=== PATIENT | female | born 1935 | race Two or more races ===

== ENCOUNTER → 2016-11-24 | Outpatient (CLI) | payer MEDICARE, OTHER ==
[~2016-11-24] VITALS: Ht 163.8 cm; Wt 91.6 kg
[~2016-11-24] MED LIST: ADENOSINE 77 MG in GIVE UN-DILUTED 0 ML IV ONE; ADENOSINE 90 MG/30 ML INJ IV ONE
== END | disposition home or self-care (01) ==
LOC: Rad HDHVI 08:53
PROVIDERS: ATTEND Internal Medicine Cardiovascular Disease
DX: I10 Essential (primary) hypertension (principal); I25.10 Atherosclerotic heart disease of native coronary artery without angina pectoris
CPT/HCPCS: 78452; 93005; 93306; 93880; 96374; 96375; A9500; J0153

== ENCOUNTER → 2017-11-29 | Outpatient (CLI) | payer MEDICARE, OTHER ==
[~2017-11-29] MED LIST changes: -ADENOSINE 77 MG in GIVE UN-DILUTED 0 ML IV ONE; -ADENOSINE 90 MG/30 ML INJ IV ONE; +ASCO500T11 PO; +CARV12.544 PO; +CHLO50TA PO; +CHOL20007 OR; +FERR-7 PO; +FOLI1TAB6 PO; +MULT-228 PO; +OLME40TA27 PO; +PANT40TA2 PO; +RIV15T PO
[2017-11-30 12:27] LABS: Hematocrit 30.6 % (36.0-46.0); Hemoglobin 10.3 g/dL (12.2-16.2); Mean Corpuscular Hemoglobin 30.8 pg (28.0-32.0); Mean Corpuscular Hgb Conc. 33.7 g/dL (32.0-36.0); Mean Corpuscular Volume 91.5 fL (80.0-100.0); Platelet Count (auto) 212 10^3/uL (140-450); Red Blood Cells 3.35 10^6/uL (4.0-5.20); Red Cell Distribution Width 18.4 % (11.8-14.3); White Blood Cell 4.2 10^3/uL (4.4-10.8)
[2017-11-30 12:29] LABS: BUN/Creatinine Ratio 11.4; Calcium 8.6 mg/dL (8.5-10.1); Potassium 3.7 mmol/L (3.5-5.1)
[2017-11-30 12:33] LABS: Basophils % (manual) 0 (0.0-2.0); Blast Cells 0; Eosinophils % (manual) 0 (0-7); Metamyelocytes % 0; Myelocytes % 0; Promyelocytes % 0; Reactive Lymphocytes 0
[2017-11-30 12:51] LABS: Band Neutrophils % (manual) 3; Lymphocytes % (manual) 32 (10.0-50.0); Monocytes % (manual) 6 (0-12)
== END | disposition home or self-care (01) ==
LOC: LAB 15:50
PROVIDERS: ATTEND Internal Medicine Cardiovascular Disease
DX: D64.9 Anemia, unspecified (principal); I10 Essential (primary) hypertension; Z88.5 Allergy status to narcotic agent
CPT/HCPCS: 36415; 80048; 85007; 85027

== ENCOUNTER 2017-12-04 17:23 | Inpatient (IN) | payer MEDICARE, OTHER ==
[~2017-12-04] VITALS: Ht 166.4 cm; Wt 97.5 kg
[2017-12-04 17:58] VITALS: BP 158/87
[2017-12-04] MEDS ORDERED: MORPHINE SULF INJ 2 MG/ML SYRINGE 1ML IV PRN (18:30)
[2017-12-04] MEDS ORDERED: NITROGLYCERIN 0.4 MG SL TAB SL PRN (18:30)
[2017-12-04 18:44] VITALS: BP 158/87
[2017-12-04] MEDS ORDERED: MULT-228 PO (18:44)
[2017-12-04] MEDS ORDERED: CHLO50TA PO (18:44)
[2017-12-04] MEDS ORDERED: PANT40TA2 PO (18:44)
[2017-12-04] MEDS ORDERED: ASCO500T11 PO (18:44)
[2017-12-04] MEDS ORDERED: FERR-7 PO (18:44)
[2017-12-04] MEDS ORDERED: CHOL20007 OR (18:44)
[2017-12-04] MEDS ORDERED: RIV15T PO (18:44)
[2017-12-04] MEDS ORDERED: CARV12.544 PO (18:44)
[2017-12-04] MEDS ORDERED: OLME40TA27 PO (18:44)
[2017-12-04] MEDS ORDERED: FOLI1TAB6 PO (18:44)
[2017-12-04] MEDS ORDERED: RIVAROXABAN 15 MG TAB PO SCH (18:52)
[2017-12-04 19:34] LABS: Basophils # (auto) 0.1 uL; Basophils % (auto) 0.9 % (0.0-2.0); Eosinophils # (auto) 0 uL; Eosinophils % (auto) 0.4 % (0.0-7.0); Hematocrit 30.6 % (36.0-46.0); Lymphocytes # (auto) 1.8 uL; Lymphocytes % (auto) 29.1 % (10.0-50.0); Mean Corpuscular Hemoglobin 28.8 pg (28.0-32.0); Mean Corpuscular Hgb Conc. 32.6 g/dL (32.0-36.0); Mean Corpuscular Volume 88.5 fL (80.0-100.0); Monocytes # (auto) 0.5 uL; Monocytes % (auto) 8.3 % (0.0-12.0); Neutrophils # (auto) 3.9 uL; Neutrophils % (auto) 61.3 % (37.0-80.0); Platelet Count (auto) 228 10^3/uL (140-450); Red Blood Cells 3.45 10^6/uL (4.0-5.20); Red Cell Distribution Width 18.8 % (11.8-14.3); White Blood Cell 6.4 10^3/uL (4.4-10.8)
[2017-12-04 19:59] LABS: Albumin 2.8 g/dL (3.4-5.0); BUN/Creatinine Ratio 18.2; Bilirubin, Total 0.5 mg/dL (0.2-1.0); Calcium 8.9 mg/dL (8.5-10.1); Potassium 3.4 mmol/L (3.5-5.1); Total Protein 8.7 g/dL (6.4-8.2)
[2017-12-04 22:00] VITALS: BP 147/75
[2017-12-04] MEDS: SODIUM CHLORIDE 0.9% 1,000 ML IV SCH (22:03)
[2017-12-04] MEDS: FERROUS SULFATE 325 MG TAB PO SCH (22:03)
[2017-12-04] MEDS: cefTRIAXone 1GM/10ml IVPUSH 10 ML IV SCH (22:03)
[2017-12-04] MEDS: CARVEDILOL 12.5 MG TAB PO SCH (22:04)
[2017-12-04] MEDS: ACETAMINOPHEN 325 MG TAB PO PRN (22:05)
[2017-12-05 01:33] LABS: Urine Bacteria NONE SEEN /hpf (None Seen); Urine Blood 2+ /uL (Negative); Urine Mucus FEW (None Seen); Urine Specific Gravity 1.014 (1.001-1.035); Urine WBC 930 /hpf (0 - 5); Urine WBC Clumps PRESENT /hpf (None Seen)
[2017-12-05 04:58] VITALS: BP 121/67
[2017-12-05] MEDS: SODIUM CHLORIDE 0.9% 1,000 ML IV SCH ×2 (07:50→15:25)
[2017-12-05 09:16] VITALS: BP 132/63
[2017-12-05] MEDS: FERROUS SULFATE 325 MG TAB PO SCH ×2 (09:17→18:05)
[2017-12-05] MEDS: cefTRIAXone 1GM/10ml IVPUSH 10 ML IV SCH (09:19)
[2017-12-05] MEDS: CHLORTHALIDONE 50MG PO SCH (09:19)
[2017-12-05] MEDS: CARVEDILOL 12.5 MG TAB PO SCH ×2 (09:20→21:31)
[2017-12-05] MEDS: PANTOPRAZOLE 40 MG TAB PO SCH (09:20)
[2017-12-05] MEDS: LOSARTAN POTASSIUM 50 MG TAB PO SCH (09:20)
[2017-12-05] MEDS: ACETAMINOPHEN 325 MG TAB PO PRN ×2 (11:52→21:31)
[2017-12-05 13:00] VITALS: BP 131/62
[2017-12-05 14:49] LABS: Basophils # (auto) 0.1 uL; Basophils % (auto) 0.9 % (0.0-2.0); Eosinophils # (auto) 0.1 uL; Eosinophils % (auto) 1.5 % (0.0-7.0); Hematocrit 26.6 % (36.0-46.0); Hemoglobin 8.7 g/dL (12.2-16.2); Lymphocytes # (auto) 0.7 uL; Lymphocytes % (auto) 11.9 % (10.0-50.0); Mean Corpuscular Hemoglobin 28.2 pg (28.0-32.0); Mean Corpuscular Hgb Conc. 32.6 g/dL (32.0-36.0); Mean Corpuscular Volume 86.5 fL (80.0-100.0); Monocytes # (auto) 0.4 uL; Monocytes % (auto) 6.5 % (0.0-12.0); Neutrophils # (auto) 4.7 uL; Neutrophils % (auto) 79.2 % (37.0-80.0); Platelet Count (auto) 195 10^3/uL (140-450); Red Blood Cells 3.08 10^6/uL (4.0-5.20); Red Cell Distribution Width 19.5 % (11.8-14.3); White Blood Cell 5.9 10^3/uL (4.4-10.8)
[2017-12-05 15:08] LABS: BUN/Creatinine Ratio 15.7; Potassium 3.3 mmol/L (3.5-5.1)
[2017-12-05] MEDS ORDERED: EPOETIN ALFA 10,000 UNIT/1 ML VIAL SC ONE (15:15)
[2017-12-05] MEDS ORDERED: POTASSIUM EFFERVESENT TAB 25 MEQ PO ONE (15:15)
[2017-12-05 17:23] VITALS: BP 116/69
[2017-12-05] MEDS ORDERED: guaiFENesin-DM 100/10mg/5ml SYR PO ONE (18:45)
[2017-12-05] MEDS: guaiFENesin-DM 100/10mg/5ml SYR PO PRN (19:27)
[2017-12-05] MEDS: TEMAZEPAM 15 MG CAP PO PRN (21:31)
[2017-12-05 22:00] VITALS: BP 157/76
[2017-12-06] MEDS: guaiFENesin-DM 100/10mg/5ml SYR PO PRN ×3 (04:36→16:30)
[2017-12-06 05:00] VITALS: BP 134/70
[2017-12-06 09:26] VITALS: BP 127/66
[2017-12-06] MEDS: LOSARTAN POTASSIUM 50 MG TAB PO SCH (10:00)
[2017-12-06] MEDS: CARVEDILOL 12.5 MG TAB PO SCH ×2 (10:00→21:16)
[2017-12-06] MEDS: CHLORTHALIDONE 50MG PO SCH (10:00)
[2017-12-06] MEDS: FERROUS SULFATE 325 MG TAB PO SCH ×2 (11:40→18:00)
[2017-12-06] MEDS: cefTRIAXone 1GM/10ml IVPUSH 10 ML IV SCH (11:40)
[2017-12-06] MEDS: PANTOPRAZOLE 40 MG TAB PO SCH (11:41)
[2017-12-06] MEDS: SODIUM CHLORIDE 0.9% 1,000 ML IV SCH ×2 (11:41→21:16)
[2017-12-06 12:30] VITALS: BP 129/72
[2017-12-06] MEDS ORDERED: POTASSIUM EFFERVESENT TAB 25 MEQ GT ONE (15:00)
[2017-12-06 16:13] VITALS: BP 139/74
[2017-12-06] MEDS: TEMAZEPAM 15 MG CAP PO PRN (21:15)
[2017-12-06 22:00] VITALS: BP 142/64
[2017-12-07] VITALS (17 sets, daily range): BP systolic 123–162; BP diastolic 65–80
[2017-12-07] MEDS: guaiFENesin-DM 100/10mg/5ml SYR PO PRN ×3 (04:08→16:35)
[2017-12-07 07:15] LABS: Hemoglobin 8.4 g/dL (12.2-16.2); Red Cell Distribution Width 18.8 % (11.8-14.3); White Blood Cell 4.8 10^3/uL (4.4-10.8)
[2017-12-07 07:19] LABS: Hematocrit 25.1 % (36.0-46.0); Mean Corpuscular Hgb Conc. 33.4 g/dL (32.0-36.0); Mean Corpuscular Volume 86.9 fL (80.0-100.0); Platelet Count (auto) 175 10^3/uL (140-450); Red Blood Cells 2.88 10^6/uL (4.0-5.20)
[2017-12-07 07:25] LABS: Band Neutrophils % (manual) 0; Basophils % (manual) 0 (0.0-2.0); Blast Cells 0; Metamyelocytes % 0; Myelocytes % 0; Promyelocytes % 0; Reactive Lymphocytes 0
[2017-12-07 07:37] LABS: BUN/Creatinine Ratio 21.2; Potassium 4.1 mmol/L (3.5-5.1)
[2017-12-07 07:38] LABS: Albumin 2.4 g/dL (3.4-5.0); Bilirubin, Total 0.4 mg/dL (0.2-1.0); Calcium 8.3 mg/dL (8.5-10.1); Total Protein 7.3 g/dL (6.4-8.2)
[2017-12-07 08:08] LABS: Eosinophils % (manual) 2 (0-7); Lymphocytes % (manual) 24 (10.0-50.0); Monocytes % (manual) 3 (0-12)
[2017-12-07] MEDS: cefTRIAXone 1GM/10ml IVPUSH 10 ML IV SCH (09:28)
[2017-12-07] MEDS: CHLORTHALIDONE 50MG PO SCH (09:29)
[2017-12-07] MEDS: CARVEDILOL 12.5 MG TAB PO SCH ×2 (09:32→21:23)
[2017-12-07] MEDS: FERROUS SULFATE 325 MG TAB PO SCH ×2 (09:32→18:01)
[2017-12-07] MEDS: LOSARTAN POTASSIUM 50 MG TAB PO SCH (09:34)
[2017-12-07] MEDS: PANTOPRAZOLE 40 MG TAB PO SCH (09:35)
[2017-12-07] MEDS: ACETAMINOPHEN 325 MG TAB PO PRN ×2 (11:05→23:27)
[2017-12-07] MEDS: SODIUM CHLORIDE 0.9% 1,000 ML IV SCH ×2 (13:23→21:24)
[2017-12-07] MEDS: TEMAZEPAM 15 MG CAP PO PRN (21:24)
[2017-12-08 05:00] VITALS: BP 158/84
[2017-12-08 06:23] LABS: Hematocrit 32.7 % (36.0-46.0); Hemoglobin 10.8 g/dL (12.2-16.2); Mean Corpuscular Hemoglobin 28.1 pg (28.0-32.0); Mean Corpuscular Hgb Conc. 33.1 g/dL (32.0-36.0); Mean Corpuscular Volume 84.9 fL (80.0-100.0); Platelet Count (auto) 171 10^3/uL (140-450); Red Blood Cells 3.85 10^6/uL (4.0-5.20); White Blood Cell 4.8 10^3/uL (4.4-10.8)
[2017-12-08 06:57] LABS: Red Cell Distribution Width 20.9 % (11.8-14.3)
[2017-12-08 06:58] LABS: Band Neutrophils % (manual) 0; Basophils % (manual) 0 (0.0-2.0); Blast Cells 0; Eosinophils % (manual) 0 (0-7); Metamyelocytes % 0; Myelocytes % 0; Promyelocytes % 0; Reactive Lymphocytes 0
[2017-12-08 08:09] LABS: Lymphocytes % (manual) 16 (10.0-50.0); Monocytes % (manual) 4 (0-12)
[2017-12-08] MEDS: FERROUS SULFATE 325 MG TAB PO SCH ×2 (08:10→19:28)
[2017-12-08 08:35] VITALS: BP 160/85
[2017-12-08] MEDS: cefTRIAXone 1GM/10ml IVPUSH 10 ML IV SCH (09:25)
[2017-12-08] MEDS: ASCORBIC ACID 500 MG TAB PO SCH (09:26)
[2017-12-08] MEDS: PANTOPRAZOLE 40 MG TAB PO SCH (09:26)
[2017-12-08] MEDS: CARVEDILOL 12.5 MG TAB PO SCH ×2 (09:26→21:43)
[2017-12-08] MEDS: LOSARTAN POTASSIUM 50 MG TAB PO SCH (09:26)
[2017-12-08] MEDS: CHLORTHALIDONE 50MG PO SCH (09:26)
[2017-12-08] MEDS: ACETAMINOPHEN 325 MG TAB PO PRN ×2 (09:27→15:30)
[2017-12-08] MEDS: guaiFENesin-DM 100/10mg/5ml SYR PO PRN ×3 (09:27→21:44)
[2017-12-08 13:00] VITALS: BP 156/74
[2017-12-08] MEDS: SODIUM CHLORIDE 0.9% 1,000 ML IV SCH (14:29)
[2017-12-08 17:00] VITALS: BP 158/74
[2017-12-08] MEDS: Pro-Stat SF 30ml Vanilla PO SCH (19:30)
[2017-12-08] MEDS: Ensure Enlive Strawberry 8oz Bottle PO SCH (19:32)
[2017-12-08] MEDS: LINEZOLID 600MG/300ML 300 ML IV SCH (21:42)
[2017-12-08 22:00] VITALS: BP 158/85
[2017-12-09 05:00] VITALS: BP 156/74
[2017-12-09] MEDS: SODIUM CHLORIDE 0.9% 1,000 ML IV SCH ×2 (05:16→18:30)
[2017-12-09] MEDS: guaiFENesin-DM 100/10mg/5ml SYR PO PRN ×3 (05:16→20:53)
[2017-12-09] MEDS: ACETAMINOPHEN 325 MG TAB PO PRN (05:16)
[2017-12-09] MEDS: FERROUS SULFATE 325 MG TAB PO SCH ×2 (08:17→17:42)
[2017-12-09] MEDS: Pro-Stat SF 30ml Vanilla PO SCH ×2 (08:25→17:42)
[2017-12-09] MEDS: Ensure Enlive Strawberry 8oz Bottle PO SCH ×3 (08:25→17:42)
[2017-12-09 09:00] VITALS: BP 156/72
[2017-12-09] MEDS: LINEZOLID 600MG/300ML 300 ML IV SCH ×2 (10:22→21:30)
[2017-12-09] MEDS: PANTOPRAZOLE 40 MG TAB PO SCH (10:23)
[2017-12-09] MEDS: ASCORBIC ACID 500 MG TAB PO SCH (10:23)
[2017-12-09] MEDS: CHLORTHALIDONE 50MG PO SCH (10:30)
[2017-12-09] MEDS: LOSARTAN POTASSIUM 50 MG TAB PO SCH (10:33)
[2017-12-09] MEDS: CARVEDILOL 12.5 MG TAB PO SCH ×2 (10:34→21:30)
[2017-12-09 13:00] VITALS: BP 136/75
[2017-12-09 17:00] VITALS: BP 155/79
[2017-12-09 17:39] LABS: Basophils # (auto) 0.1 uL; Basophils % (auto) 1.1 % (0.0-2.0); Eosinophils # (auto) 0.1 uL; Eosinophils % (auto) 1.8 % (0.0-7.0); Hematocrit 33.9 % (36.0-46.0); Hemoglobin 11.2 g/dL (12.2-16.2); Lymphocytes # (auto) 1.9 uL; Lymphocytes % (auto) 31.8 % (10.0-50.0); Mean Corpuscular Hemoglobin 28.2 pg (28.0-32.0); Mean Corpuscular Volume 85.6 fL (80.0-100.0); Monocytes # (auto) 0.6 uL; Monocytes % (auto) 9.1 % (0.0-12.0); Neutrophils # (auto) 3.4 uL; Neutrophils % (auto) 56.2 % (37.0-80.0); Nucleated Red Blood Cells % 0.1 %; Platelet Count (auto) 176 10^3/uL (140-450); Red Blood Cells 3.96 10^6/uL (4.0-5.20); White Blood Cell 6.1 10^3/uL (4.4-10.8)
[2017-12-09 17:53] LABS: Albumin 2.4 g/dL (3.4-5.0); BUN/Creatinine Ratio 21.6; Bilirubin, Total 0.4 mg/dL (0.2-1.0); Calcium 8.3 mg/dL (8.5-10.1); Potassium 3.9 mmol/L (3.5-5.1); Total Protein 7.7 g/dL (6.4-8.2)
[2017-12-09 22:00] VITALS: BP 157/80
[2017-12-10] MEDS: ACETAMINOPHEN 325 MG TAB PO PRN (01:55)
[2017-12-10 05:02] LABS: Urine Bacteria FEW /hpf (None Seen); Urine Blood 2+ /uL (Negative); Urine WBC 29 /hpf (0 - 5)
[2017-12-10 05:10] VITALS: BP 155/77
[2017-12-10] MEDS: SODIUM CHLORIDE 0.9% 1,000 ML IV SCH (06:06)
[2017-12-10] MEDS: Pro-Stat SF 30ml Vanilla PO SCH (07:39)
[2017-12-10] MEDS: Ensure Enlive Strawberry 8oz Bottle PO SCH ×2 (07:39→12:37)
[2017-12-10] MEDS: FERROUS SULFATE 325 MG TAB PO SCH (07:58)
[2017-12-10 08:00] VITALS: BP 157/80
[2017-12-10 09:27] LABS: Albumin 2.4 g/dL (3.4-5.0); BUN/Creatinine Ratio 17.7; Bilirubin, Total 0.5 mg/dL (0.2-1.0); Calcium 8.2 mg/dL (8.5-10.1); Potassium 3.6 mmol/L (3.5-5.1); Total Protein 7.5 g/dL (6.4-8.2)
[2017-12-10] MEDS: LINEZOLID 600MG/300ML 300 ML IV SCH (09:57)
[2017-12-10] MEDS: CHLORTHALIDONE 50MG PO SCH (09:59)
[2017-12-10] MEDS: ASCORBIC ACID 500 MG TAB PO SCH (10:02)
[2017-12-10] MEDS: PANTOPRAZOLE 40 MG TAB PO SCH (10:02)
[2017-12-10] MEDS: LOSARTAN POTASSIUM 50 MG TAB PO SCH (10:02)
[2017-12-10] MEDS: CARVEDILOL 12.5 MG TAB PO SCH (10:03)
[2017-12-10] MEDS: guaiFENesin-DM 100/10mg/5ml SYR PO PRN (10:23)
[2017-12-10 12:00] VITALS: BP 154/76
[2017-12-10 16:55] VITALS: BP 151/72
== END 2017-12-10 19:00 | disposition home or self-care (01) | DRG 871 ==
LOC: WEST WING 17:42 → TELE-WESTW 20:50
PROVIDERS: ADMIT Internal Medicine Cardiovascular Disease; ATTEND Internal Medicine Cardiovascular Disease
PROC: 30233N1 Transfusion of Nonautologous Red Blood Cells into Peripheral Vein, Percutaneous Approach (ICD-10-PCS; principal; 2017-12-07)
DX: A41.9 Sepsis, unspecified organism (principal); E43 Unspecified severe protein-calorie malnutrition; N17.0 Acute kidney failure with tubular necrosis; K92.2 Gastrointestinal hemorrhage, unspecified; N39.0 Urinary tract infection, site not specified; N17.9 Acute kidney failure, unspecified; E87.6 Hypokalemia; D64.9 Anemia, unspecified; I10 Essential (primary) hypertension; Z16.21 Resistance to vancomycin; B95.2 Enterococcus as the cause of diseases classified elsewhere; Z86.711 Personal history of pulmonary embolism
CPT/HCPCS: 36415; 36600; 71045; 80048; 80053; 81001; 82805; 85007; 85025; 85027; 86850; 86900; 86901; 86922; 87040; 87081; 87086; A6257; J0696; J0885

== ENCOUNTER → 2018-02-11 | Outpatient (CLI) | payer MEDICARE, OTHER ==
[~2018-02-11] MED LIST changes: +IOHEXOL 350 MG/ML 100ML IJ ONE; +OLME40TA19 PO; -OLME40TA27 PO
[2018-02-11 09:05] VITALS: BP 131/79
[2018-02-11 09:40] VITALS: BP 154/73
[2018-02-11 12:01] LABS: Basophils # (auto) 0 uL; Basophils % (auto) 0.8 % (0.0-2.0); Eosinophils # (auto) 0.1 uL; Eosinophils % (auto) 1.4 % (0.0-7.0); Hematocrit 30.2 % (36.0-46.0); Hemoglobin 9.8 g/dL (12.2-16.2); Lymphocytes # (auto) 1.5 uL; Lymphocytes % (auto) 36.5 % (10.0-50.0); Mean Corpuscular Hemoglobin 30.3 pg (28.0-32.0); Mean Corpuscular Hgb Conc. 32.5 g/dL (32.0-36.0); Mean Corpuscular Volume 93.2 fL (80.0-100.0); Monocytes # (auto) 0.4 uL; Monocytes % (auto) 8.8 % (0.0-12.0); Neutrophils # (auto) 2.2 uL; Neutrophils % (auto) 52.5 % (37.0-80.0); Nucleated Red Blood Cells % 0.9 %; Platelet Count (auto) 152 10^3/uL (140-450); Red Blood Cells 3.24 10^6/uL (4.0-5.20); White Blood Cell 4.2 10^3/uL (4.4-10.8)
== END | disposition home or self-care (01) ==
LOC: Rad HDHVI 08:58
PROVIDERS: ATTEND Internal Medicine Cardiovascular Disease
DX: I70.0 Atherosclerosis of aorta (principal); D64.9 Anemia, unspecified
CPT/HCPCS: 36415; 71275; 82565; 85025; G0463; Q9967

== ENCOUNTER → 2018-02-15 | Outpatient (CLI) | payer MEDICARE, OTHER ==
[~2018-02-15] MED LIST changes: -IOHEXOL 350 MG/ML 100ML IJ ONE
== END | disposition home or self-care (01) ==
LOC: Rad HDHVI 12:49
PROVIDERS: ATTEND Internal Medicine Cardiovascular Disease
DX: I26.99 Other pulmonary embolism without acute cor pulmonale (principal); I51.7 Cardiomegaly; I82.409 Acute embolism and thrombosis of unspecified deep veins of unspecified lower extremity; I95.9 Hypotension, unspecified
CPT/HCPCS: 93306; 93970

== ENCOUNTER → 2019-03-23 | Outpatient (CLI) | payer MEDICARE, OTHER ==
[~2019-03-23] VITALS: Ht 165.1 cm; Wt 99.8 kg
[~2019-03-23] MED LIST changes: +ADENOSINE 84 MG in GIVE UN-DILUTED 0 ML IV ONE; +ADENOSINE 90 MG/30 ML INJ IV ONE; -OLME40TA19 PO; +OLME40TA26 PO
== END | disposition home or self-care (01) ==
LOC: Rad HDHVI 11:58
PROVIDERS: ATTEND Internal Medicine Cardiovascular Disease
DX: I11.0 Hypertensive heart disease with heart failure (principal); I50.33 Acute on chronic diastolic (congestive) heart failure; I27.20 Pulmonary hypertension, unspecified
CPT/HCPCS: 78452; 93005; 93306; 96374; 96375; A9500; J0153

== ENCOUNTER → 2020-02-16 | Outpatient (CLI) | payer MEDICARE, OTHER ==
[~2020-02-16] MED LIST changes: -ADENOSINE 84 MG in GIVE UN-DILUTED 0 ML IV ONE; -ADENOSINE 90 MG/30 ML INJ IV ONE
[2020-02-16 12:05] LABS: Basophils # (auto) 0 10 ^3/uL (0-0.2); Basophils % (auto) 0.5 % (0.0-2.0); Eosinophils # (auto) 0.2 10 ^3/uL (0-0.8); Hemoglobin 8.1 g/dL (12.2-16.2); Lymphocytes # (auto) 2.1 10 ^3/uL (0.4-5.4); Mean Corpuscular Hemoglobin 30.1 pg (28.0-32.0); Mean Corpuscular Hgb Conc. 32.9 g/dL (32.0-36.0); Red Blood Cells 2.68 10^6/uL (4.0-5.20)
[2020-02-16 12:07] LABS: Hematocrit 24.5 % (36.0-46.0); Lymphocytes % (auto) 35.3 % (10.0-50.0); Mean Corpuscular Volume 91.4 fL (80.0-100.0); Monocytes # (auto) 0.7 10 ^3/uL (0-1.3); Monocytes % (auto) 11.7 % (0.0-12.0); Neutrophils # (auto) 2.9 10 ^3/uL (1.6-8.6); Neutrophils % (auto) 49.5 % (37.0-80.0); Nucleated Red Blood Cells % 0.2 %; Platelet Count (auto) 133 10^3/uL (140-450); Red Cell Distribution Width 18.9 % (11.8-14.3); White Blood Cell 5.8 10^3/uL (4.4-10.8)
[2020-02-16 12:13] LABS: Albumin 2.2 g/dL (3.4-5.0); Potassium 4.4 mmol/L (3.5-5.1)
[2020-02-16 12:51] LABS: BUN/Creatinine Ratio 17.4; Bilirubin, Direct 0.1 mg/dL (0-0.2); Bilirubin, Total 0.3 mg/dL (0.2-1.0); Calcium 9.2 mg/dL (8.5-10.1); Total Protein 8.4 g/dL (6.4-8.2)
== END | disposition home or self-care (01) ==
LOC: LAB 10:36
PROVIDERS: ATTEND Internal Medicine Cardiovascular Disease
DX: D51.3 Other dietary vitamin B12 deficiency anemia (principal); D64.9 Anemia, unspecified; E11.9 Type 2 diabetes mellitus without complications; E55.9 Vitamin D deficiency, unspecified; I10 Essential (primary) hypertension; R53.1 Weakness; R00.2 Palpitations; R30.0 Dysuria
CPT/HCPCS: 80048; 80061; 80076; 82306; 84443

== ENCOUNTER 2020-05-07 20:39 | Inpatient (IN) | payer MEDICARE, OTHER ==
[~2020-05-07] VITALS: Ht 165.1 cm; Wt 133.0 kg
[2020-05-07] MEDS ORDERED: PIPERACILLIN-TAZOB 3.375GM 100 ML IV ONE (22:15)
[2020-05-07] MEDS ORDERED: VANCOMYCIN 1GM/250ML 250 ML IV ONE (22:15)
[2020-05-07 22:55] LABS: Basophils # (auto) 0 10 ^3/uL (0-0.2); Basophils % (auto) 0.1 % (0.0-2.0); Eosinophils # (auto) 0 10 ^3/uL (0-0.8); Eosinophils % (auto) 1.1 % (0.0-7.0); Hemoglobin 8.6 g/dL (12.2-16.2); Lymphocytes # (auto) 0.4 10 ^3/uL (0.4-5.4); Lymphocytes % (auto) 8.7 % (10.0-50.0); Mean Corpuscular Hemoglobin 28.7 pg (28.0-32.0); Mean Corpuscular Hgb Conc. 32.9 g/dL (32.0-36.0); Mean Corpuscular Volume 87.2 fL (80.0-100.0); Monocytes # (auto) 0.1 10 ^3/uL (0-1.3); Monocytes % (auto) 1.8 % (0.0-12.0); Neutrophils # (auto) 3.8 10 ^3/uL (1.6-8.6); Neutrophils % (auto) 88.3 % (37.0-80.0); Nucleated Red Blood Cells % 0.8 %; Platelet Count (auto) 88 10^3/uL (140-450); Red Blood Cells 2.98 10^6/uL (4.0-5.20); Red Cell Distribution Width 19.9 % (11.8-14.3); White Blood Cell 4.3 10^3/uL (4.4-10.8)
[2020-05-07 23:08] LABS: INR 1.29 (0.9-1.15)
[2020-05-07 23:11] LABS: Alanine Aminotransferase 64 U/L (13-56); Albumin 1.3 g/dL (3.4-5.0); Anion Gap 13 (5-15); Aspartate Aminotransferase 116 U/L (15-37); BUN/Creatinine Ratio 42.4; Calcium 11.1 mg/dL (8.5-10.1); Carbon Dioxide 16 mmol/L (21-32); Chloride 116 mmol/L (98-107); GFR African American 24 mL/min; GFR Non-African American 20 mL/min; Glucose 199 mg/dL (74-106); Magnesium 1.8 mg/dL (1.6-2.6); Potassium 3.6 mmol/L (3.5-5.1); Sodium 145 mmol/L (136-145)
[2020-05-07 23:15] LABS: Blood Urea Nitrogen 103 mg/dL (7-18)
[2020-05-07 23:19] LABS: Bilirubin, Total 0.4 mg/dL (0.2-1.0); Total Protein 6.2 g/dL (6.4-8.2)
[2020-05-07 23:54] LABS: Alkaline Phosphatase 214 U/L (45-117)
[2020-05-08] MEDS ORDERED: ALBUTEROL SULF 2.5 MG/0.5ML(0.5%) NEB SOLN NEB PRN (00:30)
[2020-05-08] MEDS ORDERED: NITROGLYCERIN 0.4 MG SL TAB SL PRN (01:45)
[2020-05-08 03:28] LABS: Urine Amorphous Crystal FEW /hpf (None Seen); Urine Bacteria MANY /hpf (None Seen); Urine Blood TRACE /uL (Negative); Urine Budding Yeast MANY /hpf (None Seen); Urine Mucus FEW (None Seen); Urine Specific Gravity 1.014 (1.001-1.035); Urine WBC 168 /hpf (0 - 5); Urine WBC Clumps PRESENT /hpf (None Seen)
[2020-05-08] MEDS: metroNIDAZOLE 500MG/100ML 100 ML IV SCH ×3 (05:48→22:13)
[2020-05-08] MEDS: ALBUTEROL SULF 2.5 MG/0.5ML(0.5%) NEB SOLN NEB SCH ×3 (06:00→22:12)
[2020-05-08] MEDS: PIPERACILLIN-TAZO 4.5GM 100 ML IV SCH ×3 (08:00→23:50)
[2020-05-08] MEDS ORDERED: ENOXAPARIN SOD 60 MG/0.6 ML SYRINGE SC SCH (10:00)
[2020-05-08 11:30] VITALS: BP 127/72
[2020-05-08] MEDS: SODIUM CHLORIDE 0.9% 1,000 ML IV SCH ×2 (15:23→23:00)
[2020-05-08] MEDS: Jevity 1.2 Cal/Fiber 1 Liter NG SCH (16:08)
[2020-05-08] MEDS ORDERED: MEGE20TA4 PO (19:08)
[2020-05-08] MEDS ORDERED: FERR220E10 PO (19:08)
[2020-05-08] MEDS ORDERED: FLUC150T38 PO (19:08)
[2020-05-08] MEDS ORDERED: CARV6.2551 PO (19:08)
[2020-05-08] MEDS ORDERED: POTA-180 PO (19:08)
[2020-05-08] MEDS ORDERED: PANT40T PO (19:08)
[2020-05-08] MEDS ORDERED: SUCR1TAB22 PO (19:08)
[2020-05-08] MEDS ORDERED: LEVO-28 PO (19:08)
[2020-05-08] MEDS ORDERED: AMLO-483 PO (19:08)
[2020-05-08] MEDS ORDERED: CYAN100T7 PO (19:08)
[2020-05-08] MEDS ORDERED: ROTI4DIS TD (19:08)
[2020-05-08] MEDS ORDERED: CLIN-203 PO (19:08)
[2020-05-08] MEDS ORDERED: LEVO75TA6 PO (19:08)
[2020-05-08 21:24] VITALS: BP 115/74
[2020-05-08] MEDS ORDERED: PNEUMOCOCCAL VACC POLYS 25 MCG/0.5 ML VIAL IM ONE (21:45)
[2020-05-08] MEDS ORDERED: INFLUENZA QUAD 2020-2021 0.5 ML SYRG IM ONE (21:45)
[2020-05-09 05:00] VITALS: BP 113/59
[2020-05-09] MEDS: metroNIDAZOLE 500MG/100ML 100 ML IV SCH ×3 (05:31→20:50)
[2020-05-09] MEDS: PIPERACILLIN-TAZO 4.5GM 100 ML IV SCH ×2 (05:31→15:18)
[2020-05-09] MEDS: ALBUTEROL SULF 2.5 MG/0.5ML(0.5%) NEB SOLN NEB SCH ×3 (05:54→22:14)
[2020-05-09] MEDS: SODIUM CHLORIDE 0.9% 1,000 ML IV SCH ×3 (06:10→20:52)
[2020-05-09 08:00] VITALS: BP 119/66
[2020-05-09 13:24] LABS: Basophils # (auto) 0 10 ^3/uL (0-0.2); Basophils % (auto) 0.2 % (0.0-2.0); Eosinophils # (auto) 0.1 10 ^3/uL (0-0.8); Hemoglobin 7.7 g/dL (12.2-16.2); Lymphocytes # (auto) 0.6 10 ^3/uL (0.4-5.4); Monocytes # (auto) 0.1 10 ^3/uL (0-1.3); Monocytes % (auto) 1.7 % (0.0-12.0); Red Blood Cells 2.66 10^6/uL (4.0-5.20); Red Cell Distribution Width 19.8 % (11.8-14.3)
[2020-05-09 13:26] LABS: Eosinophils % (auto) 1.3 % (0.0-7.0); Hematocrit 22.9 % (36.0-46.0); Lymphocytes % (auto) 11.1 % (10.0-50.0); Mean Corpuscular Hemoglobin 28.9 pg (28.0-32.0); Mean Corpuscular Hgb Conc. 33.6 g/dL (32.0-36.0); Neutrophils # (auto) 4.6 10 ^3/uL (1.6-8.6); Neutrophils % (auto) 85.7 % (37.0-80.0); Nucleated Red Blood Cells % 0.4 %; Platelet Count (auto) 84 10^3/uL (140-450); White Blood Cell 5.4 10^3/uL (4.4-10.8)
[2020-05-09 14:15] LABS: BUN/Creatinine Ratio 42.3; Calcium 10.7 mg/dL (8.5-10.1); Potassium 3.3 mmol/L (3.5-5.1)
[2020-05-09 16:00] VITALS: BP 126/61
[2020-05-09] MEDS ORDERED: MICAFUNGIN SODIUM 100 MG in SODIUM CHL 0.9% 100 ML IV ONE (16:30)
[2020-05-09] MEDS: ASCORBIC ACID 500 MG TAB PO SCH (20:50)
[2020-05-09 21:52] VITALS: BP 131/68
[2020-05-10 03:12] LABS: Basophils # (auto) 0 10 ^3/uL (0-0.2); Basophils % (auto) 0.1 % (0.0-2.0); Eosinophils # (auto) 0.1 10 ^3/uL (0-0.8); Eosinophils % (auto) 1.2 % (0.0-7.0); Hematocrit 22.2 % (36.0-46.0); Hemoglobin 7.5 g/dL (12.2-16.2); Lymphocytes # (auto) 0.6 10 ^3/uL (0.4-5.4); Lymphocytes % (auto) 12.2 % (10.0-50.0); Mean Corpuscular Hgb Conc. 33.9 g/dL (32.0-36.0); Mean Corpuscular Volume 85.5 fL (80.0-100.0); Monocytes # (auto) 0.1 10 ^3/uL (0-1.3); Monocytes % (auto) 1.4 % (0.0-12.0); Neutrophils # (auto) 4.5 10 ^3/uL (1.6-8.6); Neutrophils % (auto) 85.1 % (37.0-80.0); Nucleated Red Blood Cells % 0.5 %; Platelet Count (auto) 77 10^3/uL (140-450); Red Cell Distribution Width 19.9 % (11.8-14.3); White Blood Cell 5.3 10^3/uL (4.4-10.8)
[2020-05-10 05:03] VITALS: BP 118/54
[2020-05-10] MEDS: metroNIDAZOLE 500MG/100ML 100 ML IV SCH ×3 (05:24→21:31)
[2020-05-10] MEDS: PIPERACILLIN-TAZOB 2.25GM 50 ML IV SCH ×5 (05:24→21:31)
[2020-05-10] MEDS: SODIUM CHLORIDE 0.9% 1,000 ML IV SCH ×3 (05:25→21:32)
[2020-05-10 08:00] VITALS: BP 113/60
[2020-05-10] MEDS ORDERED: MICAFUNGIN SODIUM 100 MG in SODIUM CHL 0.9% 100 ML IV SCH (10:00)
[2020-05-10] MEDS: ENOXAPARIN SOD 60 MG/0.6 ML SYRINGE SC SCH (10:17)
[2020-05-10] MEDS: ZINC SULFATE 220mg CAP or TAB PO SCH (10:43)
[2020-05-10] MEDS: CHOLECALCIFEROL (VITD3) 2,000 UNIT CAP/TAB PO SCH (10:44)
[2020-05-10] MEDS: ASCORBIC ACID 500 MG TAB PO SCH ×2 (10:44→21:31)
[2020-05-10 16:00] VITALS: BP 91/48
[2020-05-10] MEDS: ALBUTEROL SULF 2.5 MG/0.5ML(0.5%) NEB SOLN NEB SCH (18:36)
[2020-05-10 20:00] VITALS: BP 103/51
[2020-05-10 22:00] VITALS: BP 149/101
[2020-05-10] MEDS: Jevity 1.2 Cal/Fiber 1 Liter NG SCH (22:21)
[2020-05-11] MEDS: SODIUM CHLORIDE 0.9% 1,000 ML IV SCH ×4 (05:56→23:10)
[2020-05-11] MEDS: PIPERACILLIN-TAZOB 2.25GM 50 ML IV SCH ×3 (05:56→17:33)
[2020-05-11] MEDS: metroNIDAZOLE 500MG/100ML 100 ML IV SCH ×3 (05:56→22:59)
[2020-05-11] MEDS: ALBUTEROL SULF 2.5 MG/0.5ML(0.5%) NEB SOLN NEB SCH ×3 (06:00→18:08)
[2020-05-11 06:01] VITALS: BP 86/49
[2020-05-11 08:00] VITALS: BP 93/50
[2020-05-11] MEDS: ASCORBIC ACID 500 MG TAB PO SCH ×2 (09:23→23:00)
[2020-05-11] MEDS: ZINC SULFATE 220mg CAP or TAB PO SCH (09:23)
[2020-05-11] MEDS: MICAFUNGIN SODIUM 100 MG in SODIUM CHL 0.9% 100 ML IV SCH (09:24)
[2020-05-11] MEDS: ENOXAPARIN SOD 60 MG/0.6 ML SYRINGE SC SCH (09:25)
[2020-05-11] MEDS: CHOLECALCIFEROL (VITD3) 2,000 UNIT CAP/TAB PO SCH (09:25)
[2020-05-11 16:00] VITALS: BP 91/50
[2020-05-11 20:00] VITALS: BP 74/43
[2020-05-11 22:00] VITALS: BP 74/43
[2020-05-11] MEDS ORDERED: ALBUMIN 25% 100 ML IV ONE ×2 (22:29→22:30)
[2020-05-11 23:20] VITALS: BP 113/42
[2020-05-12] MEDS ORDERED: SODIUM BICARBONATE 8.4 % INJ 50ML VIAL IV ONE ×2 (00:15→00:18)
[2020-05-12 02:41] VITALS: BP 91/49
[2020-05-12 05:00] VITALS: BP 82/41
[2020-05-12] MEDS: SODIUM CHLORIDE 0.9% 1,000 ML IV SCH ×3 (05:41→16:44)
[2020-05-12] MEDS: ALBUTEROL SULF 2.5 MG/0.5ML(0.5%) NEB SOLN NEB SCH ×3 (06:20→22:00)
[2020-05-12] MEDS: metroNIDAZOLE 500MG/100ML 100 ML IV SCH ×3 (07:00→21:29)
[2020-05-12 08:00] VITALS: BP 88/36
[2020-05-12] MEDS: ENOXAPARIN SOD 60 MG/0.6 ML SYRINGE SC SCH (10:00)
[2020-05-12] MEDS: ASCORBIC ACID 500 MG TAB PO SCH ×2 (10:45→21:28)
[2020-05-12] MEDS: ZINC SULFATE 220mg CAP or TAB PO SCH (10:45)
[2020-05-12] MEDS: CHOLECALCIFEROL (VITD3) 2,000 UNIT CAP/TAB PO SCH (10:45)
[2020-05-12] MEDS: MICAFUNGIN SODIUM 100 MG in SODIUM CHL 0.9% 100 ML IV SCH (11:19)
[2020-05-12] MEDS: PIPERACILLIN-TAZOB 2.25GM 50 ML IV SCH ×4 (11:27→23:31)
[2020-05-12 12:21] LABS: Hemoglobin 8.5 g/dL (12.2-16.2); Mean Corpuscular Hgb Conc. 33.3 g/dL (32.0-36.0); Red Blood Cells 2.91 10^6/uL (4.0-5.20); White Blood Cell 5.1 10^3/uL (4.4-10.8)
[2020-05-12 12:23] LABS: Hematocrit 25.5 % (36.0-46.0); Mean Corpuscular Hemoglobin 29.2 pg (28.0-32.0); Mean Corpuscular Volume 87.8 fL (80.0-100.0); Platelet Count (auto) 40 10^3/uL (140-450)
[2020-05-12 12:27] LABS: Basophils % (manual) 0 (0.0-2.0); Blast Cells 0; Eosinophils % (manual) 0 (0-7); Metamyelocytes % 0; Myelocytes % 0; Promyelocytes % 0; Reactive Lymphocytes 0
[2020-05-12 12:36] LABS: BUN/Creatinine Ratio 36.6; Calcium 9.5 mg/dL (8.5-10.1); Potassium 3.3 mmol/L (3.5-5.1)
[2020-05-12] MEDS ORDERED: ALBUMIN 25% 100 ML IV ONE ×2 (13:45)
[2020-05-12 14:53] LABS: Lymphocytes % (manual) 13 (10.0-50.0); Monocytes % (manual) 2 (0-12)
[2020-05-12 14:55] LABS: Band Neutrophils % (manual) 18
[2020-05-12 16:00] VITALS: BP 80/38
[2020-05-12] MEDS ORDERED: D5W 5% 1,000 ML IV SCH (17:30)
[2020-05-12 22:00] VITALS: BP 91/49
[2020-05-12] MEDS: D5W/SOD CHL 0.45% 1,000 ML IV SCH (23:31)
[2020-05-13] VITALS (39 sets, daily range): BP systolic 63–132; BP diastolic 25–55
[2020-05-13] MEDS: PIPERACILLIN-TAZOB 2.25GM 50 ML IV SCH ×4 (05:07→23:23)
[2020-05-13] MEDS: ALBUTEROL SULF 2.5 MG/0.5ML(0.5%) NEB SOLN NEB SCH ×3 (06:00→22:30)
[2020-05-13] MEDS: D5W/SOD CHL 0.45% 1,000 ML IV SCH ×3 (06:02→18:04)
[2020-05-13] MEDS: metroNIDAZOLE 500MG/100ML 100 ML IV SCH ×3 (06:03→22:00)
[2020-05-13 06:15] LABS: Basophils # (auto) 0 10 ^3/uL (0-0.2); Basophils % (auto) 0.2 % (0.0-2.0); Eosinophils # (auto) 0 10 ^3/uL (0-0.8); Eosinophils % (auto) 0.3 % (0.0-7.0); Hematocrit 24.1 % (36.0-46.0); Lymphocytes # (auto) 0.6 10 ^3/uL (0.4-5.4); Lymphocytes % (auto) 10.9 % (10.0-50.0); Mean Corpuscular Hemoglobin 29.3 pg (28.0-32.0); Mean Corpuscular Hgb Conc. 33.1 g/dL (32.0-36.0); Mean Corpuscular Volume 88.4 fL (80.0-100.0); Monocytes # (auto) 0.1 10 ^3/uL (0-1.3); Neutrophils # (auto) 4.8 10 ^3/uL (1.6-8.6); Neutrophils % (auto) 86.6 % (37.0-80.0); Nucleated Red Blood Cells % 2.5 %; Platelet Count (auto) 31 10^3/uL (140-450); Red Blood Cells 2.72 10^6/uL (4.0-5.20); Red Cell Distribution Width 18.7 % (11.8-14.3); White Blood Cell 5.6 10^3/uL (4.4-10.8)
[2020-05-13 06:35] LABS: Anion Gap 10 (5-15); Carbon Dioxide 15 mmol/L (21-32); Chloride 122 mmol/L (98-107); Potassium 3.2 mmol/L (3.5-5.1); Sodium 147 mmol/L (136-145)
[2020-05-13 06:36] LABS: Alanine Aminotransferase 42 U/L (13-56); Albumin 1.9 g/dL (3.4-5.0); Alkaline Phosphatase 177 U/L (45-117); Aspartate Aminotransferase 78 U/L (15-37); BUN/Creatinine Ratio 33.6; Bilirubin, Total 1.1 mg/dL (0.2-1.0); Calcium 9.3 mg/dL (8.5-10.1); GFR African American 21 mL/min; GFR Non-African American 18 mL/min; Phosphorus 7.3 mg/dL (2.5-4.90); Total Protein 5.3 g/dL (6.4-8.2)
[2020-05-13 06:38] LABS: Blood Urea Nitrogen 92 mg/dL (7-18); Glucose 409 mg/dL (74-106)
[2020-05-13] MEDS ORDERED: InsuLIN REG 1unit/0.01ml Soln (100units/ml) SC ONE (07:00)
[2020-05-13] MEDS: MICAFUNGIN SODIUM 100 MG in SODIUM CHL 0.9% 100 ML IV SCH (09:59)
[2020-05-13] MEDS ORDERED: ETOMIDATE (2MG/ML) 20ML VIAL IV ONE (12:04)
[2020-05-13] MEDS ORDERED: ROCURONIUM 10MG/ML 10ML VIAL IV ONE (12:04)
[2020-05-13] MEDS ORDERED: SUCCINYLCHOLINE CHLORIDE 20 MG/ML 10ML VIAL IV ONE (12:04)
[2020-05-13] MEDS ORDERED: DOPamine 1600MCG/ML D5W 250 ML IV ONE (12:07)
[2020-05-13] MEDS ORDERED: POTASSIUM CHLORIDE 40 MEQ, LIDOCAINE 1% (LOCAL ANESTH.) 4 ML in SODIUM CHL 0.9% 250 ML IV ONE (12:30)
[2020-05-13] MEDS ORDERED: fentaNYL Drip 2500mCg/250mlNS 250 ML IV ONE (12:32)
[2020-05-13] MEDS ORDERED: MIDAZOLAM DRIP 50 mg/50mL 50 ML IV ONE (12:32)
[2020-05-13] MEDS ORDERED: POTASSIUM CHL 20MEQ/100ML 200 ML IV ONE (12:32)
[2020-05-13] MEDS: DOPamine 1600MCG/ML D5W 250 ML IV SCH (13:45)
[2020-05-13] MEDS: CHOLECALCIFEROL (VITD3) 2,000 UNIT CAP/TAB PO SCH (14:00)
[2020-05-13] MEDS: ASCORBIC ACID 500 MG TAB PO SCH ×2 (14:00→22:00)
[2020-05-13] MEDS: ZINC SULFATE 220mg CAP or TAB PO SCH (14:00)
[2020-05-13] MEDS: ENOXAPARIN SOD 60 MG/0.6 ML SYRINGE SC SCH (14:00)
[2020-05-13] MEDS ORDERED: NOREPINEPHRINE 8 MG/250ML KIT 250 ML IV ONE (14:10)
[2020-05-13] MEDS: NOREPINEPHRINE 8 MG/250ML KIT 250 ML IV SCH (14:15)
[2020-05-13 17:38] LABS: BUN/Creatinine Ratio 31.5; Calcium 9.5 mg/dL (8.5-10.1); Potassium 3.7 mmol/L (3.5-5.1)
[2020-05-13] MEDS: VASOPRESSIN 50 UNITS in D5W 5% 247.5 ML IV SCH (18:45)
[2020-05-13] MEDS: MIDAZOLAM DRIP 50 mg/50mL 50 ML IV SCH (19:45)
[2020-05-13] MEDS ORDERED: DEXTROSE (50%) 50ML SYRG IV PRN (19:45)
[2020-05-13] MEDS ORDERED: SODIUM BICARBONATE 8.4 % INJ 50ML VIAL IV ONE (22:48)
[2020-05-13] MEDS: SODIUM BICARBONATE 50ML VIAL 150 ML in D5W 5% 1,000 ML IV SCH ×2 (23:00→23:24)
[2020-05-14] VITALS (62 sets, daily range): BP systolic 94–144; BP diastolic 13–73
[2020-05-14] MEDS: ALBUTEROL SULF 2.5 MG/0.5ML(0.5%) NEB SOLN NEB SCH ×3 (00:30→14:00)
[2020-05-14] MEDS: SODIUM BICARBONATE 50ML VIAL 150 ML in D5W 5% 1,000 ML IV SCH ×2 (03:00→13:39)
[2020-05-14] MEDS: DOPamine 1600MCG/ML D5W 250 ML IV SCH ×6 (03:03→17:53)
[2020-05-14 05:19] LABS: BUN/Creatinine Ratio 30.9; Potassium 3.1 mmol/L (3.5-5.1)
[2020-05-14] MEDS: PIPERACILLIN-TAZOB 2.25GM 50 ML IV SCH ×4 (05:19→23:00)
[2020-05-14] MEDS: metroNIDAZOLE 500MG/100ML 100 ML IV SCH ×3 (06:00→22:00)
[2020-05-14] MEDS: ACCU-CHEK COMFORT CURVE STRIP VI SCH ×4 (06:08→18:48)
[2020-05-14] MEDS: InsuLIN REG 1unit/0.01ml Soln (100units/ml) SC SCH ×4 (06:18→18:48)
[2020-05-14 06:20] LABS: Hematocrit 27.1 % (36.0-46.0); Hemoglobin 8.2 g/dL (12.2-16.2); Mean Corpuscular Hemoglobin 29.5 pg (28.0-32.0); Mean Corpuscular Hgb Conc. 30.4 g/dL (32.0-36.0); Platelet Count (auto) 45 10^3/uL (140-450); Red Blood Cells 2.79 10^6/uL (4.0-5.20); Red Cell Distribution Width 20.9 % (11.8-14.3); White Blood Cell 11.7 10^3/uL (4.4-10.8)
[2020-05-14 06:22] LABS: Basophils % (manual) 0 (0.0-2.0); Blast Cells 0; Eosinophils % (manual) 0 (0-7); Metamyelocytes % 0; Myelocytes % 0; Promyelocytes % 0; Reactive Lymphocytes 0
[2020-05-14 06:59] LABS: Band Neutrophils % (manual) 10; Lymphocytes % (manual) 7 (10.0-50.0); Monocytes % (manual) 1 (0-12)
[2020-05-14] MEDS ORDERED: SODIUM BICARBONATE 8.4 % INJ 50ML VIAL IV ONE (08:00)
[2020-05-14] MEDS: POTASSIUM CHL 20MEQ/100ML 100 ML IV SCH ×2 (08:58→10:15)
[2020-05-14] MEDS: ENOXAPARIN SOD 60 MG/0.6 ML SYRINGE SC SCH (10:00)
[2020-05-14] MEDS: ZINC SULFATE 220mg CAP or TAB PO SCH (10:00)
[2020-05-14] MEDS: ASCORBIC ACID 500 MG TAB PO SCH ×2 (10:00→22:00)
[2020-05-14] MEDS: CHOLECALCIFEROL (VITD3) 2,000 UNIT CAP/TAB PO SCH (10:00)
[2020-05-14] MEDS: NOREPINEPHRINE 8 MG/250ML KIT 250 ML IV SCH ×3 (10:12→17:58)
[2020-05-14] MEDS: VASOPRESSIN 50 UNITS in D5W 5% 247.5 ML IV SCH (10:37)
[2020-05-14] MEDS: MICAFUNGIN SODIUM 100 MG in SODIUM CHL 0.9% 100 ML IV SCH (12:52)
[2020-05-14] MEDS: MIDAZOLAM DRIP 50 mg/50mL 50 ML IV SCH (19:45)
[2020-05-14] MEDS ORDERED: VASOPRESSIN 20 UNIT/ML ONE (23:04)
[2020-05-15] VITALS (75 sets, daily range): BP systolic 65–153; BP diastolic 11–36
[2020-05-15] MEDS: ACCU-CHEK COMFORT CURVE STRIP VI SCH ×5 (00:05→23:24)
[2020-05-15] MEDS: InsuLIN REG 1unit/0.01ml Soln (100units/ml) SC SCH ×5 (00:25→23:28)
[2020-05-15] MEDS: SODIUM BICARBONATE 50ML VIAL 150 ML in D5W 5% 1,000 ML IV SCH ×4 (02:00→18:23)
[2020-05-15] MEDS: PIPERACILLIN-TAZOB 2.25GM 50 ML IV SCH ×4 (04:08→23:19)
[2020-05-15] MEDS: ALBUTEROL SULF 2.5 MG/0.5ML(0.5%) NEB SOLN NEB SCH ×3 (05:51→22:21)
[2020-05-15] MEDS: metroNIDAZOLE 500MG/100ML 100 ML IV SCH ×3 (06:02→22:11)
[2020-05-15] MEDS: NOREPINEPHRINE 8 MG/250ML KIT 250 ML IV SCH ×3 (08:28→15:41)
[2020-05-15] MEDS: DOPamine 1600MCG/ML D5W 250 ML IV SCH ×4 (08:43→18:54)
[2020-05-15 08:44] LABS: Hematocrit 17.8 % (36.0-46.0); Red Blood Cells 2.04 10^6/uL (4.0-5.20); Red Cell Distribution Width 19.2 % (11.8-14.3)
[2020-05-15 08:45] LABS: Mean Corpuscular Hemoglobin 28.6 pg (28.0-32.0); Mean Corpuscular Hgb Conc. 32.7 g/dL (32.0-36.0); Mean Corpuscular Volume 87.3 fL (80.0-100.0); Platelet Count (auto) 37 10^3/uL (140-450); White Blood Cell 27.6 10^3/uL (4.4-10.8)
[2020-05-15 08:55] LABS: Hemoglobin 5.8 g/dL (12.2-16.2)
[2020-05-15 08:56] LABS: Basophils % (manual) 0 (0.0-2.0); Blast Cells 0; Eosinophils % (manual) 0 (0-7); Monocytes % (manual) 0 (0-12); Promyelocytes % 0; Reactive Lymphocytes 0
[2020-05-15 09:01] LABS: Potassium 3.7 mmol/L (3.5-5.1)
[2020-05-15 09:42] LABS: Band Neutrophils % (manual) 27; Lymphocytes % (manual) 5 (10.0-50.0); Metamyelocytes % 3; Myelocytes % 3
[2020-05-15] MEDS: ASCORBIC ACID 500 MG TAB PO SCH ×2 (10:00→22:11)
[2020-05-15] MEDS: ENOXAPARIN SOD 60 MG/0.6 ML SYRINGE SC SCH (10:00)
[2020-05-15] MEDS: CHOLECALCIFEROL (VITD3) 2,000 UNIT CAP/TAB PO SCH (10:00)
[2020-05-15] MEDS: ZINC SULFATE 220mg CAP or TAB PO SCH (10:00)
[2020-05-15] MEDS: MICAFUNGIN SODIUM 100 MG in SODIUM CHL 0.9% 100 ML IV SCH (10:28)
[2020-05-15] MEDS: VASOPRESSIN 50 UNITS in D5W 5% 247.5 ML IV SCH (10:28)
[2020-05-15] MEDS: MIDAZOLAM DRIP 50 mg/50mL 50 ML IV SCH ×2 (15:04→15:36)
[2020-05-15 18:02] LABS: BUN/Creatinine Ratio 28.6; Calcium 7.6 mg/dL (8.5-10.1); Potassium 3.7 mmol/L (3.5-5.1)
[2020-05-15 18:04] LABS: Bilirubin, Total 0.9 mg/dL (0.2-1.0)
[2020-05-15 18:08] LABS: Hematocrit 16.7 % (36.0-46.0); Mean Corpuscular Hemoglobin 28.7 pg (28.0-32.0); Mean Corpuscular Hgb Conc. 32.8 g/dL (32.0-36.0); Mean Corpuscular Volume 87.4 fL (80.0-100.0); Platelet Count (auto) 34 10^3/uL (140-450); Red Cell Distribution Width 19.7 % (11.8-14.3); White Blood Cell 29.8 10^3/uL (4.4-10.8)
[2020-05-15 18:27] LABS: Hemoglobin 5.5 g/dL (12.2-16.2)
[2020-05-15 18:28] LABS: Basophils % (manual) 0 (0.0-2.0); Blast Cells 0; Eosinophils % (manual) 0 (0-7); Promyelocytes % 0; Reactive Lymphocytes 0
[2020-05-15 19:29] LABS: Band Neutrophils % (manual) 28; Lymphocytes % (manual) 15 (10.0-50.0); Metamyelocytes % 6; Monocytes % (manual) 4 (0-12); Myelocytes % 4
[2020-05-16] VITALS (104 sets, daily range): BP systolic 66–178; BP diastolic 11–73
[2020-05-16] MEDS: PIPERACILLIN-TAZOB 2.25GM 50 ML IV SCH ×4 (04:32→22:36)
[2020-05-16] MEDS: NOREPINEPHRINE 8 MG/250ML KIT 250 ML IV SCH ×3 (04:54→16:43)
[2020-05-16] MEDS: ALBUTEROL SULF 2.5 MG/0.5ML(0.5%) NEB SOLN NEB SCH ×3 (06:00→21:52)
[2020-05-16] MEDS: InsuLIN REG 1unit/0.01ml Soln (100units/ml) SC SCH ×3 (06:00→17:54)
[2020-05-16] MEDS: SODIUM BICARBONATE 50ML VIAL 150 ML in D5W 5% 1,000 ML IV SCH ×3 (06:03→21:33)
[2020-05-16] MEDS: metroNIDAZOLE 500MG/100ML 100 ML IV SCH ×3 (06:03→21:38)
[2020-05-16] MEDS: ACCU-CHEK COMFORT CURVE STRIP VI SCH ×3 (06:04→17:24)
[2020-05-16 06:39] LABS: Mean Corpuscular Volume 84.2 fL (80.0-100.0)
[2020-05-16 06:42] LABS: Hematocrit 18.1 % (36.0-46.0); Mean Corpuscular Hemoglobin 28.3 pg (28.0-32.0); Mean Corpuscular Hgb Conc. 33.7 g/dL (32.0-36.0); Platelet Count (auto) 25 10^3/uL (140-450); Red Blood Cells 2.15 10^6/uL (4.0-5.20); Red Cell Distribution Width 18.1 % (11.8-14.3); White Blood Cell 25.9 10^3/uL (4.4-10.8)
[2020-05-16 06:43] LABS: BUN/Creatinine Ratio 26.4; Potassium 3.8 mmol/L (3.5-5.1)
[2020-05-16 07:02] LABS: Hemoglobin 6.1 g/dL (12.2-16.2)
[2020-05-16 07:04] LABS: Basophils % (manual) 0 (0.0-2.0); Blast Cells 0; Eosinophils % (manual) 0 (0-7); Monocytes % (manual) 0 (0-12); Promyelocytes % 0; Reactive Lymphocytes 0
[2020-05-16 07:29] LABS: Band Neutrophils % (manual) 14; Lymphocytes % (manual) 7 (10.0-50.0); Metamyelocytes % 3; Myelocytes % 2
[2020-05-16] MEDS ORDERED: SODIUM CHLORIDE 0.9 % NEB SOLN 3ML NEB ONE (07:47)
[2020-05-16] MEDS ORDERED: BUMETANIDE 2.5mg/10ml (0.25 mg/ml) INJ IV ONE (08:00)
[2020-05-16] MEDS: DOPamine 1600MCG/ML D5W 250 ML IV SCH (08:31)
[2020-05-16] MEDS: MICAFUNGIN SODIUM 100 MG in SODIUM CHL 0.9% 100 ML IV SCH (09:47)
[2020-05-16] MEDS: CHOLECALCIFEROL (VITD3) 2,000 UNIT CAP/TAB PO SCH (09:48)
[2020-05-16] MEDS: ZINC SULFATE 220mg CAP or TAB PO SCH (09:48)
[2020-05-16] MEDS: ASCORBIC ACID 500 MG TAB PO SCH ×2 (09:48→21:39)
[2020-05-16] MEDS: ENOXAPARIN SOD 60 MG/0.6 ML SYRINGE SC SCH (09:48)
[2020-05-16] MEDS: VASOPRESSIN 50 UNITS in D5W 5% 247.5 ML IV SCH (11:00)
[2020-05-16] MEDS ORDERED: SODIUM BICARBONATE 8.4% INJ 50ML SYRINGE IV ONE (12:53)
[2020-05-16] MEDS ORDERED: EPINEPHrine HCL 1 MG/10 ML SYRG IV ONE (12:53)
[2020-05-16 20:23] LABS: Red Cell Distribution Width 17.8 % (11.8-14.3)
[2020-05-16 20:25] LABS: Hematocrit 16.4 % (36.0-46.0); Mean Corpuscular Hemoglobin 28.8 pg (28.0-32.0); Mean Corpuscular Hgb Conc. 33.9 g/dL (32.0-36.0); Mean Corpuscular Volume 84.9 fL (80.0-100.0); Red Blood Cells 1.93 10^6/uL (4.0-5.20)
[2020-05-16 20:28] LABS: Hemoglobin 5.6 g/dL (12.2-16.2); Platelet Count (auto) 13 10^3/uL (140-450)
[2020-05-16 20:29] LABS: Basophils % (manual) 0 (0.0-2.0); Blast Cells 0; Eosinophils % (manual) 0 (0-7); Monocytes % (manual) 0 (0-12); Reactive Lymphocytes 0
[2020-05-16 20:50] LABS: Band Neutrophils % (manual) 52; Lymphocytes % (manual) 8 (10.0-50.0); Metamyelocytes % 5; Myelocytes % 12; Promyelocytes % 2
[2020-05-16] MEDS: MIDAZOLAM DRIP 50 mg/50mL 50 ML IV SCH (21:33)
[2020-05-17] VITALS (91 sets, daily range): BP systolic 51–182; BP diastolic 16–132
[2020-05-17] MEDS: ACCU-CHEK COMFORT CURVE STRIP VI SCH ×5 (00:39→23:54)
[2020-05-17] MEDS: SODIUM BICARBONATE 50ML VIAL 150 ML in D5W 5% 1,000 ML IV SCH ×3 (05:00→16:55)
[2020-05-17] MEDS: PIPERACILLIN-TAZOB 2.25GM 50 ML IV SCH ×2 (05:03→12:48)
[2020-05-17] MEDS: ALBUTEROL SULF 2.5 MG/0.5ML(0.5%) NEB SOLN NEB SCH ×3 (06:00→18:30)
[2020-05-17] MEDS: InsuLIN REG 1unit/0.01ml Soln (100units/ml) SC SCH ×5 (06:00→23:54)
[2020-05-17] MEDS: metroNIDAZOLE 500MG/100ML 100 ML IV SCH (06:29)
[2020-05-17] MEDS ORDERED: VASOPRESSIN 20 UNIT/ML ONE (07:21)
[2020-05-17] MEDS: VASOPRESSIN 50 UNITS in D5W 5% 247.5 ML IV SCH (07:30)
[2020-05-17] MEDS: MIDAZOLAM DRIP 50 mg/50mL 50 ML IV SCH (07:31)
[2020-05-17] MEDS: NOREPINEPHRINE 8 MG/250ML KIT 250 ML IV SCH (07:32)
[2020-05-17] MEDS: ENOXAPARIN SOD 60 MG/0.6 ML SYRINGE SC SCH (09:48)
[2020-05-17 09:53] LABS: Basophils # (auto) 0.1 10 ^3/uL (0-0.2); Eosinophils # (auto) 0 10 ^3/uL (0-0.8); Eosinophils % (auto) 0.1 % (0.0-7.0); Hematocrit 19.4 % (36.0-46.0); Lymphocytes # (auto) 0.8 10 ^3/uL (0.4-5.4); Mean Corpuscular Hemoglobin 29.1 pg (28.0-32.0); Mean Corpuscular Hgb Conc. 34.2 g/dL (32.0-36.0); Mean Corpuscular Volume 85.1 fL (80.0-100.0); Monocytes # (auto) 0.2 10 ^3/uL (0-1.3); Monocytes % (auto) 1.5 % (0.0-12.0); Neutrophils % (auto) 90.4 % (37.0-80.0); Nucleated Red Blood Cells % 3.5 %; Red Blood Cells 2.28 10^6/uL (4.0-5.20); Red Cell Distribution Width 17.5 % (11.8-14.3); White Blood Cell 11.1 10^3/uL (4.4-10.8)
[2020-05-17 09:57] LABS: Hemoglobin 6.6 g/dL (12.2-16.2); Platelet Count (auto) 10 10^3/uL (140-450)
[2020-05-17] MEDS: DOPamine 1600MCG/ML D5W 250 ML IV SCH (09:58)
[2020-05-17] MEDS: MICAFUNGIN SODIUM 100 MG in SODIUM CHL 0.9% 100 ML IV SCH (09:58)
[2020-05-17] MEDS: ZINC SULFATE 220mg CAP or TAB PO SCH (09:59)
[2020-05-17] MEDS: ASCORBIC ACID 500 MG TAB PO SCH ×2 (09:59→21:22)
[2020-05-17] MEDS: CHOLECALCIFEROL (VITD3) 2,000 UNIT CAP/TAB PO SCH (09:59)
[2020-05-17] MEDS: FAMOTIDINE (10MG/ML) 2ML VL IV SCH (09:59)
[2020-05-17 10:14] LABS: BUN/Creatinine Ratio 25.3; Calcium 7.1 mg/dL (8.5-10.1); Potassium 3.4 mmol/L (3.5-5.1)
[2020-05-17] MEDS ORDERED: VANCOMYCIN PER PHARMACY 0 MG IV SCH (13:45)
[2020-05-17] MEDS ORDERED: VANCOMYCIN 1GM/250ML 250 ML IV ONE (15:00)
[2020-05-17] MEDS: MEROPENEM 500MG IVPB 50 ML IV SCH (21:22)
[2020-05-18] VITALS (112 sets, daily range): BP systolic 49–170; BP diastolic 22–77
[2020-05-18] MEDS: SODIUM BICARBONATE 50ML VIAL 150 ML in D5W 5% 1,000 ML IV SCH ×4 (02:13→20:00)
[2020-05-18] MEDS: ACCU-CHEK COMFORT CURVE STRIP VI SCH ×3 (06:10→17:58)
[2020-05-18] MEDS: InsuLIN REG 1unit/0.01ml Soln (100units/ml) SC SCH ×3 (06:13→18:20)
[2020-05-18] MEDS: ALBUTEROL SULF 2.5 MG/0.5ML(0.5%) NEB SOLN NEB SCH ×3 (06:43→22:10)
[2020-05-18] MEDS: FAMOTIDINE (10MG/ML) 2ML VL IV SCH (08:53)
[2020-05-18] MEDS: ASCORBIC ACID 500 MG TAB PO SCH ×2 (08:53→22:00)
[2020-05-18] MEDS: ZINC SULFATE 220mg CAP or TAB PO SCH (08:53)
[2020-05-18] MEDS: CHOLECALCIFEROL (VITD3) 2,000 UNIT CAP/TAB PO SCH (08:53)
[2020-05-18] MEDS: ENOXAPARIN SOD 60 MG/0.6 ML SYRINGE SC SCH (08:53)
[2020-05-18] MEDS: NOREPINEPHRINE 8 MG/250ML KIT 250 ML IV SCH ×2 (08:55)
[2020-05-18] MEDS: MICAFUNGIN SODIUM 100 MG in SODIUM CHL 0.9% 100 ML IV SCH (08:55)
[2020-05-18] MEDS: MEROPENEM 500MG IVPB 50 ML IV SCH ×2 (08:55→22:00)
[2020-05-18] MEDS: MIDAZOLAM DRIP 50 mg/50mL 50 ML IV SCH (08:56)
[2020-05-18] MEDS: DOPamine 1600MCG/ML D5W 250 ML IV SCH (08:56)
[2020-05-18] MEDS: VASOPRESSIN 50 UNITS in D5W 5% 247.5 ML IV SCH (12:28)
[2020-05-18] MEDS ORDERED: DAKINS QUARTER STR 0.125% (NaHypochlorite) 473 ML TOPICAL SOL TOP ONE (17:30)
[2020-05-19] VITALS (69 sets, daily range): BP systolic 74–165; BP diastolic 26–101
[2020-05-19] MEDS: ACCU-CHEK COMFORT CURVE STRIP VI SCH ×4 (00:24→16:51)
[2020-05-19] MEDS ORDERED: SODIUM BICARBONATE 8.4 % INJ 50ML VIAL IV ONE (03:14)
[2020-05-19] MEDS: MIDAZOLAM DRIP 50 mg/50mL 50 ML IV SCH ×2 (05:45→20:00)
[2020-05-19] MEDS: ALBUTEROL SULF 2.5 MG/0.5ML(0.5%) NEB SOLN NEB SCH ×3 (06:00→22:08)
[2020-05-19] MEDS: InsuLIN REG 1unit/0.01ml Soln (100units/ml) SC SCH ×4 (06:23→16:51)
[2020-05-19] MEDS: MEROPENEM 500MG IVPB 50 ML IV SCH ×2 (08:51→21:50)
[2020-05-19] MEDS: MICAFUNGIN SODIUM 100 MG in SODIUM CHL 0.9% 100 ML IV SCH (08:51)
[2020-05-19] MEDS: NOREPINEPHRINE 8 MG/250ML KIT 250 ML IV SCH (08:53)
[2020-05-19] MEDS: FAMOTIDINE (10MG/ML) 2ML VL IV SCH (09:00)
[2020-05-19] MEDS: DOPamine 1600MCG/ML D5W 250 ML IV SCH (09:00)
[2020-05-19] MEDS: ENOXAPARIN SOD 60 MG/0.6 ML SYRINGE SC SCH (09:01)
[2020-05-19 09:49] LABS: Red Blood Cells 2.39 10^6/uL (4.0-5.20); White Blood Cell 2.8 10^3/uL (4.4-10.8)
[2020-05-19 09:50] LABS: Hemoglobin 7.1 g/dL (12.2-16.2); Mean Corpuscular Hemoglobin 29.9 pg (28.0-32.0); Mean Corpuscular Hgb Conc. 35.8 g/dL (32.0-36.0); Mean Corpuscular Volume 83.5 fL (80.0-100.0); Red Cell Distribution Width 15.1 % (11.8-14.3)
[2020-05-19 09:53] LABS: Platelet Count (auto) 11 10^3/uL (140-450)
[2020-05-19 09:55] LABS: Basophils % (manual) 0 (0.0-2.0); Blast Cells 0; Metamyelocytes % 0; Promyelocytes % 0; Reactive Lymphocytes 0
[2020-05-19] MEDS: ASCORBIC ACID 500 MG TAB PO SCH ×2 (10:00→21:50)
[2020-05-19] MEDS: ZINC SULFATE 220mg CAP or TAB PO SCH (10:00)
[2020-05-19] MEDS: CHOLECALCIFEROL (VITD3) 2,000 UNIT CAP/TAB PO SCH (10:00)
[2020-05-19 10:05] LABS: Calcium 7.1 mg/dL (8.5-10.1); Potassium 3.3 mmol/L (3.5-5.1)
[2020-05-19 10:10] LABS: BUN/Creatinine Ratio 24.3; Bilirubin, Total 2.1 mg/dL (0.2-1.0); Total Protein 3.6 g/dL (6.4-8.2)
[2020-05-19 10:14] LABS: Albumin 0.9 g/dL (3.4-5.0)
[2020-05-19 10:22] LABS: Band Neutrophils % (manual) 5; Eosinophils % (manual) 1 (0-7); Lymphocytes % (manual) 38 (10.0-50.0); Monocytes % (manual) 14 (0-12); Myelocytes % 1
[2020-05-19] MEDS ORDERED: ALBUMIN 25% 100 ML IV ONE (11:30)
[2020-05-19] MEDS: CALCIUM ACETATE 667 MG CAP NG SCH ×2 (11:51→21:50)
[2020-05-19] MEDS ORDERED: POTASSIUM CHL 20MEQ/100ML 100 ML IV ONE (12:00)
[2020-05-19] MEDS: SODIUM BICARBONATE 50ML VIAL 100 ML in SOD CHL 0.45% 1,000 ML IV SCH ×3 (13:22→21:51)
[2020-05-19] MEDS: VASOPRESSIN 50 UNITS in D5W 5% 247.5 ML IV SCH (15:00)
[2020-05-20] VITALS (99 sets, daily range): BP systolic 68–152; BP diastolic 20–91
[2020-05-20] MEDS: ACCU-CHEK COMFORT CURVE STRIP VI SCH ×4 (00:11→17:47)
[2020-05-20] MEDS: NOREPINEPHRINE 8 MG/250ML KIT 250 ML IV SCH ×2 (01:00→12:46)
[2020-05-20] MEDS: SODIUM BICARBONATE 50ML VIAL 100 ML in SOD CHL 0.45% 1,000 ML IV SCH (05:30)
[2020-05-20] MEDS: InsuLIN REG 1unit/0.01ml Soln (100units/ml) SC SCH ×4 (05:45→18:00)
[2020-05-20] MEDS: CALCIUM ACETATE 667 MG CAP NG SCH ×3 (06:00→22:29)
[2020-05-20] MEDS: ALBUTEROL SULF 2.5 MG/0.5ML(0.5%) NEB SOLN NEB SCH ×3 (06:26→19:00)
[2020-05-20 09:09] LABS: Hematocrit 13.1 % (36.0-46.0); Red Cell Distribution Width 15.3 % (11.8-14.3); White Blood Cell 2.5 10^3/uL (4.4-10.8)
[2020-05-20 09:11] LABS: Mean Corpuscular Hemoglobin 29.9 pg (28.0-32.0); Mean Corpuscular Hgb Conc. 35.9 g/dL (32.0-36.0); Mean Corpuscular Volume 83.3 fL (80.0-100.0); Red Blood Cells 1.57 10^6/uL (4.0-5.20)
[2020-05-20 09:15] LABS: Hemoglobin 4.7 g/dL (12.2-16.2); Platelet Count (auto) 12 10^3/uL (140-450)
[2020-05-20 09:32] LABS: Albumin 1.1 g/dL (3.4-5.0); Potassium 3.5 mmol/L (3.5-5.1)
[2020-05-20 09:33] LABS: Basophils % (manual) 0 (0.0-2.0); Blast Cells 0; Reactive Lymphocytes 0
[2020-05-20 09:35] LABS: BUN/Creatinine Ratio 23.8; Bilirubin, Total 2.2 mg/dL (0.2-1.0); Total Protein 3.3 g/dL (6.4-8.2)
[2020-05-20 09:36] LABS: Band Neutrophils % (manual) 6; Eosinophils % (manual) 4 (0-7); Lymphocytes % (manual) 44 (10.0-50.0); Metamyelocytes % 1; Monocytes % (manual) 14 (0-12); Myelocytes % 1; Promyelocytes % 1
[2020-05-20] MEDS: ZINC SULFATE 220mg CAP or TAB PO SCH (10:25)
[2020-05-20] MEDS: DOPamine 1600MCG/ML D5W 250 ML IV SCH (10:25)
[2020-05-20] MEDS: FAMOTIDINE (10MG/ML) 2ML VL IV SCH (10:25)
[2020-05-20] MEDS: CHOLECALCIFEROL (VITD3) 2,000 UNIT CAP/TAB PO SCH (10:26)
[2020-05-20] MEDS: ASCORBIC ACID 500 MG TAB PO SCH ×2 (10:26→22:29)
[2020-05-20] MEDS: SODIUM CHLORIDE 0.9% 1,000 ML IV SCH ×2 (12:45→17:47)
[2020-05-20] MEDS: MEROPENEM 500MG IVPB 50 ML IV SCH ×2 (12:46→22:28)
[2020-05-20] MEDS: PANTOPRAZOLE 40 MG/10 ML VIAL INJ IV SCH ×2 (12:46→22:29)
[2020-05-20] MEDS: VASOPRESSIN 50 UNITS in D5W 5% 247.5 ML IV SCH (14:54)
[2020-05-20] MEDS ORDERED: TPN PER PHARMACY 0 ML IV SCH (15:00)
[2020-05-20] MEDS ORDERED: DEXTROSE (50%) 50ML SYRG IV SCH (18:00)
[2020-05-20] MEDS ORDERED: AMINO ACID INFUSION IN D10W 1,000 ML IV NR (20:00)
[2020-05-21] VITALS (98 sets, daily range): BP systolic 80–170; BP diastolic 33–80
[2020-05-21] MEDS: ACCU-CHEK COMFORT CURVE STRIP VI SCH ×4 (00:25→18:00)
[2020-05-21] MEDS: SODIUM CHLORIDE 0.9% 1,000 ML IV SCH ×3 (00:26→18:00)
[2020-05-21 04:45] LABS: Potassium 3.5 mmol/L (3.5-5.1)
[2020-05-21 04:57] LABS: Albumin 1.1 g/dL (3.4-5.0); BUN/Creatinine Ratio 22.6; Bilirubin, Total 2.5 mg/dL (0.2-1.0); Calcium 6.9 mg/dL (8.5-10.1); Magnesium 1.4 mg/dL (1.6-2.6); Phosphorus 6.7 mg/dL (2.5-4.90); Pre Albumin 6.3 mg/dL (20.0-40.0); Total Protein 3.5 g/dL (6.4-8.2)
[2020-05-21] MEDS: ALBUTEROL SULF 2.5 MG/0.5ML(0.5%) NEB SOLN NEB SCH ×3 (05:47→22:26)
[2020-05-21] MEDS: CALCIUM ACETATE 667 MG CAP NG SCH ×3 (05:58→22:04)
[2020-05-21] MEDS: InsuLIN REG 1unit/0.01ml Soln (100units/ml) SC SCH ×4 (06:01→18:00)
[2020-05-21 06:10] LABS: Red Cell Distribution Width 14.9 % (11.8-14.3); White Blood Cell 2.8 10^3/uL (4.4-10.8)
[2020-05-21 06:16] LABS: Hematocrit 14.5 % (36.0-46.0); Mean Corpuscular Hemoglobin 30.8 pg (28.0-32.0); Mean Corpuscular Hgb Conc. 37.1 g/dL (32.0-36.0); Mean Corpuscular Volume 83.1 fL (80.0-100.0); Red Blood Cells 1.75 10^6/uL (4.0-5.20)
[2020-05-21 06:21] LABS: Hemoglobin 5.4 g/dL (12.2-16.2); Platelet Count (auto) 17 10^3/uL (140-450)
[2020-05-21 06:23] LABS: Basophils % (manual) 0 (0.0-2.0); Promyelocytes % 0; Reactive Lymphocytes 0
[2020-05-21 06:49] LABS: Band Neutrophils % (manual) 43; Blast Cells 1; Eosinophils % (manual) 3 (0-7); Lymphocytes % (manual) 30 (10.0-50.0); Metamyelocytes % 5; Monocytes % (manual) 2 (0-12); Myelocytes % 3
[2020-05-21] MEDS: MEROPENEM 500MG IVPB 50 ML IV SCH ×2 (09:01→22:03)
[2020-05-21] MEDS: ASCORBIC ACID 500 MG TAB PO SCH ×2 (09:01→22:04)
[2020-05-21] MEDS: ZINC SULFATE 220mg CAP or TAB PO SCH (09:01)
[2020-05-21] MEDS: PANTOPRAZOLE 40 MG/10 ML VIAL INJ IV SCH ×2 (09:02→22:03)
[2020-05-21] MEDS: CHOLECALCIFEROL (VITD3) 2,000 UNIT CAP/TAB PO SCH (09:02)
[2020-05-21] MEDS ORDERED: MAGNESIUM SULFATE 1GM/100ML 100 ML IV ONE (10:00)
[2020-05-21] MEDS: MIDAZOLAM DRIP 50 mg/50mL 50 ML IV SCH ×2 (13:22→20:45)
[2020-05-21 13:38] LABS: Protein, Urine 28.4 mg/dL (0.0-11.9)
[2020-05-21] MEDS: VASOPRESSIN 50 UNITS in D5W 5% 247.5 ML IV SCH (15:00)
[2020-05-21] MEDS ORDERED: CALCIUM GLUC 4.65meq/50ml D5AE 50 ML IV ONE (16:00)
[2020-05-21] MEDS: DOPamine 1600MCG/ML D5W 250 ML IV SCH (18:33)
[2020-05-21] MEDS: NOREPINEPHRINE 8 MG/250ML KIT 250 ML IV SCH (19:05)
[2020-05-21] MEDS ORDERED: TPN PER PHARMACY IV NR ×6 (20:00)
[2020-05-22] VITALS (68 sets, daily range): BP systolic 86–161; BP diastolic 31–71
[2020-05-22] MEDS: InsuLIN REG 1unit/0.01ml Soln (100units/ml) SC SCH ×4 (00:12→18:28)
[2020-05-22] MEDS: ACCU-CHEK COMFORT CURVE STRIP VI SCH ×4 (00:12→18:28)
[2020-05-22] MEDS: SODIUM CHLORIDE 0.9% 1,000 ML IV SCH ×3 (01:00→21:00)
[2020-05-22 05:17] LABS: Potassium 4.2 mmol/L (3.5-5.1)
[2020-05-22 05:26] LABS: BUN/Creatinine Ratio 23.4; Bilirubin, Total 1.4 mg/dL (0.2-1.0); Calcium 6.2 mg/dL (8.5-10.1); Magnesium 1.6 mg/dL (1.6-2.6); Phosphorus 6.8 mg/dL (2.5-4.90); Total Protein 2.1 g/dL (6.4-8.2)
[2020-05-22 05:40] LABS: Albumin 0.2 g/dL (3.4-5.0)
[2020-05-22] MEDS: CALCIUM ACETATE 667 MG CAP NG SCH ×3 (06:13→22:00)
[2020-05-22] MEDS: ALBUTEROL SULF 2.5 MG/0.5ML(0.5%) NEB SOLN NEB SCH ×2 (09:08→17:57)
[2020-05-22] MEDS: MEROPENEM 500MG IVPB 50 ML IV SCH ×2 (10:29→22:00)
[2020-05-22] MEDS: ASCORBIC ACID 500 MG TAB PO SCH ×2 (10:29→22:00)
[2020-05-22] MEDS: ZINC SULFATE 220mg CAP or TAB PO SCH (10:29)
[2020-05-22] MEDS: PANTOPRAZOLE 40 MG/10 ML VIAL INJ IV SCH ×2 (10:29→22:00)
[2020-05-22] MEDS: CHOLECALCIFEROL (VITD3) 2,000 UNIT CAP/TAB PO SCH (10:29)
[2020-05-22 11:25] LABS: Mean Corpuscular Volume 83.6 fL (80.0-100.0); White Blood Cell 2.5 10^3/uL (4.4-10.8)
[2020-05-22 11:27] LABS: Hematocrit 14.8 % (36.0-46.0); Mean Corpuscular Hgb Conc. 35.8 g/dL (32.0-36.0); Platelet Count (auto) 34 10^3/uL (140-450); Red Blood Cells 1.77 10^6/uL (4.0-5.20); Red Cell Distribution Width 15.8 % (11.8-14.3)
[2020-05-22 11:49] LABS: Hemoglobin 5.3 g/dL (12.2-16.2)
[2020-05-22 11:50] LABS: Basophils % (manual) 0 (0.0-2.0); Blast Cells 0; Metamyelocytes % 0; Promyelocytes % 0; Reactive Lymphocytes 0
[2020-05-22 12:57] LABS: Band Neutrophils % (manual) 19; Eosinophils % (manual) 2 (0-7); Lymphocytes % (manual) 31 (10.0-50.0); Monocytes % (manual) 6 (0-12); Myelocytes % 1
[2020-05-22] MEDS: NOREPINEPHRINE 8 MG/250ML KIT 250 ML IV SCH (13:45)
[2020-05-22] MEDS: MIDAZOLAM DRIP 50 mg/50mL 50 ML IV SCH (14:16)
[2020-05-22] MEDS ORDERED: FLUCONAZOLE 200MG/100ML 100 ML IV ONE (14:45)
[2020-05-22] MEDS: VASOPRESSIN 50 UNITS in D5W 5% 247.5 ML IV SCH (15:00)
[2020-05-22] MEDS ORDERED: TPN PER PHARMACY IV NR ×10 (20:00)
[2020-05-22] MEDS: DOPamine 1600MCG/ML D5W 250 ML IV SCH (20:00)
[2020-05-23] VITALS (102 sets, daily range): BP systolic 91–139; BP diastolic 26–60
[2020-05-23] MEDS: ACCU-CHEK COMFORT CURVE STRIP VI SCH ×4 (00:05→18:00)
[2020-05-23] MEDS: InsuLIN REG 1unit/0.01ml Soln (100units/ml) SC SCH ×4 (00:06→18:01)
[2020-05-23] MEDS: SODIUM CHLORIDE 0.9% 1,000 ML IV SCH ×3 (02:00→18:00)
[2020-05-23 04:27] LABS: INR 2.18 (0.9-1.15)
[2020-05-23 04:31] LABS: Magnesium 1.3 mg/dL (1.6-2.6)
[2020-05-23 04:33] LABS: Hemoglobin 7.6 g/dL (12.2-16.2); Mean Corpuscular Hemoglobin 29.5 pg (28.0-32.0); Mean Corpuscular Hgb Conc. 34.5 g/dL (32.0-36.0); Mean Corpuscular Volume 85.5 fL (80.0-100.0); Red Blood Cells 2.57 10^6/uL (4.0-5.20)
[2020-05-23 04:35] LABS: BUN/Creatinine Ratio 23.5; Bilirubin, Total 1.8 mg/dL (0.2-1.0); Phosphorus 5.9 mg/dL (2.5-4.90); Total Protein 3.5 g/dL (6.4-8.2)
[2020-05-23 04:42] LABS: White Blood Cell 1.8 10^3/uL (4.4-10.8)
[2020-05-23 04:43] LABS: Basophils % (manual) 0 (0.0-2.0); Blast Cells 0; Platelet Count (auto) 18 10^3/uL (140-450); Promyelocytes % 0; Reactive Lymphocytes 0
[2020-05-23 04:54] LABS: Potassium 2.6 mmol/L (3.5-5.1)
[2020-05-23 05:27] LABS: Band Neutrophils % (manual) 36; Eosinophils % (manual) 5 (0-7); Lymphocytes % (manual) 34 (10.0-50.0); Metamyelocytes % 9; Monocytes % (manual) 5 (0-12); Myelocytes % 4
[2020-05-23] MEDS ORDERED: SODIUM CHLORIDE 0.9 % NEB SOLN 3ML NEB ONE (05:39)
[2020-05-23] MEDS: CALCIUM ACETATE 667 MG CAP NG SCH ×3 (06:00→22:23)
[2020-05-23] MEDS ORDERED: POTASSIUM CHL 20MEQ/100ML 100 ML IV ONE (06:30)
[2020-05-23] MEDS: ALBUTEROL SULF 2.5 MG/0.5ML(0.5%) NEB SOLN NEB SCH ×3 (06:50→22:47)
[2020-05-23] MEDS: MIDAZOLAM DRIP 50 mg/50mL 50 ML IV SCH (08:00)
[2020-05-23] MEDS: DOPamine 1600MCG/ML D5W 250 ML IV SCH ×2 (09:15→19:42)
[2020-05-23] MEDS: ASCORBIC ACID 500 MG TAB PO SCH ×2 (10:11→22:23)
[2020-05-23] MEDS: MEROPENEM 500MG IVPB 50 ML IV SCH ×2 (10:11→22:23)
[2020-05-23] MEDS: ZINC SULFATE 220mg CAP or TAB PO SCH (10:11)
[2020-05-23] MEDS: PANTOPRAZOLE 40 MG/10 ML VIAL INJ IV SCH ×2 (10:11→22:23)
[2020-05-23] MEDS: CHOLECALCIFEROL (VITD3) 2,000 UNIT CAP/TAB PO SCH (10:11)
[2020-05-23] MEDS ORDERED: POTASSIUM CHL 20MEQ/100ML 100 ML IV SCH ×2 (10:15→15:30)
[2020-05-23] MEDS ORDERED: MAGNESIUM SULFATE 1GM/100ML 100 ML IV SCH (11:00)
[2020-05-23] MEDS: POTASSIUM CHL 20MEQ/100ML 100 ML IV SCH ×2 (11:16→13:59)
[2020-05-23] MEDS: MAGNESIUM SULFATE 1GM/100ML 100 ML IV SCH ×3 (11:23→13:59)
[2020-05-23] MEDS: NOREPINEPHRINE 8 MG/250ML KIT 250 ML IV SCH (14:00)
[2020-05-23] MEDS: VASOPRESSIN 50 UNITS in D5W 5% 247.5 ML IV SCH (15:00)
[2020-05-23] MEDS: TPN PER PHARMACY IV NR ×10 (19:41)
[2020-05-24] VITALS (101 sets, daily range): BP systolic 89–154; BP diastolic 32–62
[2020-05-24] MEDS: SODIUM CHLORIDE 0.9% 1,000 ML IV SCH ×3 (01:50→17:13)
[2020-05-24 05:32] LABS: Calcium 7.2 mg/dL (8.5-10.1); Magnesium 1.7 mg/dL (1.6-2.6)
[2020-05-24 05:35] LABS: BUN/Creatinine Ratio 23.9; Bilirubin, Total 1.5 mg/dL (0.2-1.0); Phosphorus 5.5 mg/dL (2.5-4.90); Total Protein 3.6 g/dL (6.4-8.2)
[2020-05-24 05:59] LABS: Potassium 2.9 mmol/L (3.5-5.1)
[2020-05-24] MEDS: MIDAZOLAM DRIP 50 mg/50mL 50 ML IV SCH ×2 (06:04→09:58)
[2020-05-24] MEDS: ACCU-CHEK COMFORT CURVE STRIP VI SCH ×4 (06:04→17:13)
[2020-05-24] MEDS: CALCIUM ACETATE 667 MG CAP NG SCH (06:04)
[2020-05-24] MEDS: InsuLIN REG 1unit/0.01ml Soln (100units/ml) SC SCH ×4 (06:05→17:13)
[2020-05-24] MEDS: ALBUTEROL SULF 2.5 MG/0.5ML(0.5%) NEB SOLN NEB SCH ×2 (06:48→14:52)
[2020-05-24] MEDS: VASOPRESSIN 50 UNITS in D5W 5% 247.5 ML IV SCH (07:47)
[2020-05-24 09:33] LABS: White Blood Cell 2.5 10^3/uL (4.4-10.8)
[2020-05-24 09:35] LABS: Mean Corpuscular Volume 85.7 fL (80.0-100.0); Platelet Count (auto) 27 10^3/uL (140-450); Red Cell Distribution Width 16.3 % (11.8-14.3)
[2020-05-24 09:54] LABS: Hemoglobin 6.3 g/dL (12.2-16.2)
[2020-05-24 09:56] LABS: Basophils % (manual) 0 (0.0-2.0); Blast Cells 0; Myelocytes % 0; Promyelocytes % 0; Reactive Lymphocytes 0
[2020-05-24] MEDS: MEROPENEM 500MG IVPB 50 ML IV SCH ×2 (09:57→22:00)
[2020-05-24] MEDS: PANTOPRAZOLE 40 MG/10 ML VIAL INJ IV SCH ×2 (09:57→22:00)
[2020-05-24] MEDS: ASCORBIC ACID 500 MG TAB PO SCH ×2 (10:00→22:00)
[2020-05-24] MEDS: CHOLECALCIFEROL (VITD3) 2,000 UNIT CAP/TAB PO SCH (10:00)
[2020-05-24] MEDS: POTASSIUM CHL 20MEQ/100ML 100 ML IV SCH ×3 (10:00→14:14)
[2020-05-24] MEDS: ZINC SULFATE 220mg CAP or TAB PO SCH (10:00)
[2020-05-24] MEDS: NOREPINEPHRINE 8 MG/250ML KIT 250 ML IV SCH (12:00)
[2020-05-24 12:31] LABS: Band Neutrophils % (manual) 14; Eosinophils % (manual) 6 (0-7); Lymphocytes % (manual) 44 (10.0-50.0); Metamyelocytes % 4; Monocytes % (manual) 8 (0-12)
[2020-05-24] MEDS ORDERED: POTASSIUM CHLORIDE 80 MEQ, LIDOCAINE 1% (LOCAL ANESTH.) 6 ML in SODIUM CHL 0.9% 500 ML IV ONE (15:45)
[2020-05-24] MEDS: DOPamine 1600MCG/ML D5W 250 ML IV SCH (16:33)
[2020-05-24] MEDS: TPN PER PHARMACY IV NR ×10 (19:36)
[2020-05-24] MEDS ORDERED: TPN PER PHARMACY IV NR ×12 (20:00)
[2020-05-24] MEDS ORDERED: PIPERACILLIN-TAZOB 3.375GM 100 ML IV SCH (22:00)
[2020-05-25] VITALS (98 sets, daily range): BP systolic 79–158; BP diastolic 26–69
[2020-05-25] MEDS: SODIUM CHLORIDE 0.9% 1,000 ML IV SCH ×3 (02:00→19:53)
[2020-05-25 05:41] LABS: BUN/Creatinine Ratio 24.4; Calcium 7.7 mg/dL (8.5-10.1); Potassium 3.9 mmol/L (3.5-5.1)
[2020-05-25 05:44] LABS: Hemoglobin 8.3 g/dL (12.2-16.2); White Blood Cell 4.2 10^3/uL (4.4-10.8)
[2020-05-25 05:49] LABS: Hematocrit 24.1 % (36.0-46.0); Mean Corpuscular Hemoglobin 28.6 pg (28.0-32.0); Mean Corpuscular Hgb Conc. 34.6 g/dL (32.0-36.0); Mean Corpuscular Volume 82.6 fL (80.0-100.0); Platelet Count (auto) 49 10^3/uL (140-450); Red Blood Cells 2.92 10^6/uL (4.0-5.20)
[2020-05-25 05:51] LABS: Red Cell Distribution Width 20.5 % (11.8-14.3)
[2020-05-25 05:52] LABS: Basophils % (manual) 0 (0.0-2.0); Blast Cells 0; Metamyelocytes % 0; Promyelocytes % 0; Reactive Lymphocytes 0
[2020-05-25] MEDS: InsuLIN REG 1unit/0.01ml Soln (100units/ml) SC SCH ×4 (06:00→17:16)
[2020-05-25] MEDS: ACCU-CHEK COMFORT CURVE STRIP VI SCH ×4 (06:00→17:19)
[2020-05-25] MEDS: ALBUTEROL SULF 2.5 MG/0.5ML(0.5%) NEB SOLN NEB SCH ×2 (06:34→14:07)
[2020-05-25 06:45] LABS: Band Neutrophils % (manual) 11; Eosinophils % (manual) 1 (0-7); Lymphocytes % (manual) 38 (10.0-50.0); Monocytes % (manual) 15 (0-12); Myelocytes % 2
[2020-05-25 08:56] LABS: Hemoglobin 8.1 g/dL (12.2-16.2)
[2020-05-25 08:58] LABS: Hematocrit 22.9 % (36.0-46.0); Mean Corpuscular Hemoglobin 28.6 pg (28.0-32.0); Mean Corpuscular Hgb Conc. 35.3 g/dL (32.0-36.0); Platelet Count (auto) 37 10^3/uL (140-450); Red Blood Cells 2.83 10^6/uL (4.0-5.20)
[2020-05-25 09:04] LABS: Red Cell Distribution Width 20.5 % (11.8-14.3)
[2020-05-25 09:06] LABS: Basophils % (manual) 0 (0.0-2.0); Blast Cells 0; Eosinophils % (manual) 0 (0-7); Promyelocytes % 0
[2020-05-25 09:14] LABS: INR 2.23 (0.9-1.15)
[2020-05-25] MEDS: CHOLECALCIFEROL (VITD3) 2,000 UNIT CAP/TAB PO SCH (10:00)
[2020-05-25] MEDS: ASCORBIC ACID 500 MG TAB PO SCH ×2 (10:00→22:09)
[2020-05-25] MEDS: ZINC SULFATE 220mg CAP or TAB PO SCH (10:00)
[2020-05-25 10:24] LABS: BUN/Creatinine Ratio 22.5; Calcium 7.8 mg/dL (8.5-10.1); Potassium 3.9 mmol/L (3.5-5.1)
[2020-05-25] MEDS: PANTOPRAZOLE 40 MG/10 ML VIAL INJ IV SCH ×2 (10:24→22:09)
[2020-05-25] MEDS: MEROPENEM 500MG IVPB 50 ML IV SCH ×2 (10:24→22:09)
[2020-05-25 10:27] LABS: Bilirubin, Total 1.5 mg/dL (0.2-1.0); Total Protein 3.6 g/dL (6.4-8.2)
[2020-05-25 10:39] LABS: Albumin 0.8 g/dL (3.4-5.0)
[2020-05-25] MEDS: NOREPINEPHRINE 8 MG/250ML KIT 250 ML IV SCH (11:37)
[2020-05-25] MEDS: DOPamine 1600MCG/ML D5W 250 ML IV SCH (11:39)
[2020-05-25 13:20] LABS: Metamyelocytes % 4; Monocytes % (manual) 7 (0-12); Myelocytes % 4; Reactive Lymphocytes 2
[2020-05-25 13:21] LABS: Band Neutrophils % (manual) 15
[2020-05-25 13:22] LABS: Lymphocytes % (manual) 23 (10.0-50.0)
[2020-05-25] MEDS ORDERED: SODIUM CHLORIDE 0.9% 1,000 ML IV SCH (13:30)
[2020-05-25 14:06] LABS: Phosphorus 5.9 mg/dL (2.5-4.90)
[2020-05-25] MEDS: VASOPRESSIN 50 UNITS in D5W 5% 247.5 ML IV SCH (15:00)
[2020-05-25] MEDS: MIDAZOLAM DRIP 50 mg/50mL 50 ML IV SCH (18:42)
[2020-05-25] MEDS ORDERED: TPN PER PHARMACY IV NR ×8 (20:00)
[2020-05-26] VITALS (93 sets, daily range): BP systolic 78–142; BP diastolic 21–109
[2020-05-26] MEDS: ACCU-CHEK COMFORT CURVE STRIP VI SCH ×4 (00:25→18:28)
[2020-05-26] MEDS: InsuLIN REG 1unit/0.01ml Soln (100units/ml) SC SCH ×4 (00:28→18:00)
[2020-05-26] MEDS: SODIUM CHLORIDE 0.9% 1,000 ML IV SCH ×3 (04:42→21:57)
[2020-05-26] MEDS: ALBUTEROL SULF 2.5 MG/0.5ML(0.5%) NEB SOLN NEB SCH ×3 (05:46→22:07)
[2020-05-26 06:34] LABS: Potassium 4.2 mmol/L (3.5-5.1)
[2020-05-26 06:47] LABS: BUN/Creatinine Ratio 23.5; Bilirubin, Total 1.4 mg/dL (0.2-1.0); Calcium 7.6 mg/dL (8.5-10.1); Phosphorus 5.7 mg/dL (2.5-4.90); Pre Albumin 3.3 mg/dL (20.0-40.0); Total Protein 3.7 g/dL (6.4-8.2)
[2020-05-26 07:13] LABS: Albumin 0.7 g/dL (3.4-5.0)
[2020-05-26] MEDS: MIDAZOLAM DRIP 50 mg/50mL 50 ML IV SCH ×2 (08:34→17:30)
[2020-05-26] MEDS: DOPamine 1600MCG/ML D5W 250 ML IV SCH (08:34)
[2020-05-26] MEDS: MEROPENEM 500MG IVPB 50 ML IV SCH ×2 (09:57→21:56)
[2020-05-26] MEDS: PANTOPRAZOLE 40 MG/10 ML VIAL INJ IV SCH ×2 (09:57→21:56)
[2020-05-26] MEDS: ZINC SULFATE 220mg CAP or TAB PO SCH (09:58)
[2020-05-26] MEDS: CHOLECALCIFEROL (VITD3) 2,000 UNIT CAP/TAB PO SCH (09:58)
[2020-05-26] MEDS: ASCORBIC ACID 500 MG TAB PO SCH ×2 (09:58→21:57)
[2020-05-26] MEDS: VASOPRESSIN 50 UNITS in D5W 5% 247.5 ML IV SCH (15:00)
[2020-05-26] MEDS: NOREPINEPHRINE 8 MG/250ML KIT 250 ML IV SCH (17:30)
[2020-05-26] MEDS ORDERED: TPN PER PHARMACY IV NR ×9 (20:00)
[2020-05-27] VITALS (12 sets, daily range): BP systolic 39–119; BP diastolic 18–54
[2020-05-27] MEDS: ACCU-CHEK COMFORT CURVE STRIP VI SCH ×3 (01:00→12:00)
[2020-05-27] MEDS: InsuLIN REG 1unit/0.01ml Soln (100units/ml) SC SCH ×3 (01:01→12:05)
[2020-05-27] MEDS: ALBUTEROL SULF 2.5 MG/0.5ML(0.5%) NEB SOLN NEB SCH (06:40)
[2020-05-27] MEDS: VASOPRESSIN 50 UNITS in D5W 5% 247.5 ML IV SCH (06:48)
[2020-05-27 06:54] LABS: Sodium 136 mmol/L (136-145)
[2020-05-27 06:55] LABS: Anion Gap 11 (5-15); Carbon Dioxide 21 mmol/L (21-32); Chloride 104 mmol/L (98-107)
[2020-05-27 06:56] LABS: Alanine Aminotransferase 34 U/L (13-56); Alkaline Phosphatase 590 U/L (45-117); Aspartate Aminotransferase 218 U/L (15-37); Bilirubin, Total 1.4 mg/dL (0.2-1.0); Calcium 7.7 mg/dL (8.5-10.1); GFR African American 19 mL/min; GFR Non-African American 16 mL/min; Total Protein 3.4 g/dL (6.4-8.2)
[2020-05-27 06:57] LABS: BUN/Creatinine Ratio 24.5; Blood Urea Nitrogen 74 mg/dL (7-18); Glucose 156 mg/dL (74-106); Magnesium 2.4 mg/dL (1.6-2.6)
[2020-05-27 06:58] LABS: Albumin 0.6 g/dL (3.4-5.0)
[2020-05-27] MEDS: SODIUM CHLORIDE 0.9% 1,000 ML IV SCH ×2 (07:17→15:34)
[2020-05-27] MEDS: MIDAZOLAM DRIP 50 mg/50mL 50 ML IV SCH ×2 (07:30→13:08)
[2020-05-27] MEDS: NOREPINEPHRINE 8 MG/250ML KIT 250 ML IV SCH (08:00)
[2020-05-27] MEDS: ALBUMIN 25% 100 ML IV SCH ×2 (09:50→10:45)
[2020-05-27] MEDS ORDERED: DAKINS QUARTER STR 0.125% (NaHypochlorite) 473 ML TOPICAL SOL TOP SCH (10:00)
[2020-05-27] MEDS: PANTOPRAZOLE 40 MG/10 ML VIAL INJ IV SCH (10:13)
[2020-05-27] MEDS: ASCORBIC ACID 500 MG TAB PO SCH (10:13)
[2020-05-27] MEDS: MEROPENEM 500MG IVPB 50 ML IV SCH (10:13)
[2020-05-27] MEDS: CHOLECALCIFEROL (VITD3) 2,000 UNIT CAP/TAB PO SCH (10:13)
[2020-05-27] MEDS: ZINC SULFATE 220mg CAP or TAB PO SCH (10:13)
[2020-05-27] MEDS ORDERED: TPN PER PHARMACY IV NR ×8 (20:00)
[2020-05-27] MEDS ORDERED: CALCIUM CHLOR(10%) 100MG/ML 10ML SYRINGE IV ONE (22:02)
[2020-05-27] MEDS ORDERED: EPINEPHrine HCL 1 MG/10 ML SYRG IV ONE (22:02)
== END 2020-05-27 22:02 | DRG 870 ==
LOC: ER 20:43 → TELE 20:44 → TELE-CENTR 05-08 23:00 → ICU WEST 05-13 13:10
PROVIDERS: ADMIT Internal Medicine Cardiovascular Disease; ATTEND Internal Medicine Cardiovascular Disease
PROC: 5A09457 Assistance with Respiratory Ventilation, 24-96 Consecutive Hours, Continuous Positive Airway Pressure (ICD-10-PCS; 2020-05-12)
PROC: 5A1955Z Respiratory Ventilation, Greater than 96 Consecutive Hours (ICD-10-PCS; principal; 2020-05-14)
PROC: 0BH17EZ Insertion of Endotracheal Airway into Trachea, Via Natural or Artificial Opening (ICD-10-PCS; 2020-05-14)
PROC: 30233N1 Transfusion of Nonautologous Red Blood Cells into Peripheral Vein, Percutaneous Approach (ICD-10-PCS; 2020-05-15)
PROC: 30233R1 Transfusion of Nonautologous Platelets into Peripheral Vein, Percutaneous Approach (ICD-10-PCS; 2020-05-17)
PROC: 30233K1 Transfusion of Nonautologous Frozen Plasma into Peripheral Vein, Percutaneous Approach (ICD-10-PCS; 2020-05-18)
PROC: 3E0336Z Introduction of Nutritional Substance into Peripheral Vein, Percutaneous Approach (ICD-10-PCS; 2020-05-21)
PROC: 5A12012 Performance of Cardiac Output, Single, Manual (ICD-10-PCS; 2020-05-27)
DX: A41.9 Sepsis, unspecified organism (principal); I63.9 Cerebral infarction, unspecified; L89.154 Pressure ulcer of sacral region, stage 4; J18.9 Pneumonia, unspecified organism; N17.0 Acute kidney failure with tubular necrosis; R65.21 Severe sepsis with septic shock; J96.00 Acute respiratory failure, unspecified whether with hypoxia or hypercapnia; G93.41 Metabolic encephalopathy; D61.818 Other pancytopenia; E87.0 Hyperosmolality and hypernatremia; D68.9 Coagulation defect, unspecified; Z20.822 Contact with and (suspected) exposure to COVID-19; B95.2 Enterococcus as the cause of diseases classified elsewhere; E86.9 Volume depletion, unspecified; I10 Essential (primary) hypertension; D50.0 Iron deficiency anemia secondary to blood loss (chronic); E86.1 Hypovolemia; Z86.73 Personal history of transient ischemic attack (TIA), and cerebral infarction without residual deficits; Z87.440 Personal history of urinary (tract) infections; Z88.5 Allergy status to narcotic agent
CPT/HCPCS: 36415; 36600; 70450; 71045; 80048; 80053; 80202; 81001; 82040; 82270; 82306; 82565; 82570; 82805; 82962; 83605; 83735; 83880; 84100; 84132; 84156; 84300; 84311; 84443; 84478; 84484; 85007; 85025; 85027; 85362; 85610; 86850; 86870; 86900; 86901; 86902; 86920; 86922; 87040; 87045; 87070; 87077; 87081; 87086; 87088; 87186; 87205; 87426; 87427; 92950; 93005; 93306; 94002; 94003; 94640; 94660; 96365; 96366; 96367; 96368; 97163; C9113; G0378; J0330; J0610; J1450; J1815; J2001; J2185; J2248; J2250; J2543; J3480; J3490; J7042; J7060; J7131; P9047